=== PATIENT | male | born 1990 | race Hispanic/Latino ===

== ENCOUNTER 2016-10-02 14:49 | Inpatient (IN) | payer OTHER ==
--- NOTE | 2016-10-02 16:15 | ED PDOC ---
Arrival/HPI - General Historian: Patient - General Chief Complaint: Abdominal Pain Time Seen by Provider: 10/02/16 15:21 - History of Present Illness Narrative History of Present Illness (Text): 10/02/16 16:16 Patient complains of 1 week h/o intermittent upper abdominal pain described as a bloating sensation, worse with movement and with standing. Denies any other symptoms. Otherwise: (+) recent travel in end of August from [place] to [place], (-) nausea / vomiting, (-) diarrhea, (-) fever, (-) cough, (-) chest pain, (-) SOB, (-) urinary symptoms, (-) melena, (-) hematochezia, (-) calf pain / swelling. Has no history of prior abdominal surgery. (Mateo TORRES,Carly Harley) Past Medical History - Provider Review Nursing Documentation Reviewed: Yes - Infectious Disease Hx of Infectious Diseases: None - Reproductive Currently : No - Cardiac Hx Hypertension: Yes (tx with short time on meds) - Psychiatric Hx Substance Use: No Family/Social History - Physician Review Nursing Documentation Reviewed: Yes Family/Social History: No Known Family HX, Other (mother has a h/o clotting disorder, however pt states that he was tested and he was negative) Smoking Status: Never Smoked Hx Alcohol Use: Yes Frequency of alcohol use: Socially Hx Substance Use: No Allergies/Home Meds Allergies/Adverse Reactions: Allergies Sulfa (Sulfonamide Antibiotics) Adverse Reaction (Verified 10/02/16 15:20) RASH Home Medications: Home Meds Medication Instructions Recorded Confirmed No Known Home Med 10/02/16 10/02/16 Review of Systems - Review of Systems Constitutional: Normal. absent: Fatigue, Weight Change, Fevers Respiratory: Normal. absent: SOB, Cough, Sputum Cardiovascular: Normal. absent: Chest Pain, Palpitations, Edema Gastrointestinal: Normal, Abdominal Pain. absent: Stool Changes, Appetite Changes Musculoskeletal: Normal. absent: Arthralgias, Back Pain, Neck Pain Skin: Normal. absent: Rash, Pruritis, Skin Lesions Psychiatric: Normal, Anxiety. absent: Depression, Suicidal Ideation Physical Exam - Physical Exam Narrative Physical Exam (Text): 10/02/16 16:14 GENERAL APPEARANCE: Patient is awake, alert, oriented x 3, in no acute distress. SKIN: Warm, dry; (-) cyanosis. EYES: (-) conjunctival pallor, (-) scleral icterus. ENMT: Mucous membranes moist. NECK: (-) tenderness, (-) stiffness, (-) lymphadenopathy. CHEST AND RESPIRATORY: (-) tenderness, (-) rales, (-) rhonchi, (-) wheezes; breath sounds equal bilaterally. HEART AND CARDIOVASCULAR: (-) irregularity; (-) murmur, (-) gallop. ABDOMEN AND GI: (-) distention. Bowel sounds active; (-) tenderness, (-) guarding, (-) rebound, (-) palpable masses, (-) CVA tenderness. EXTREMITIES: (-) deformity, (-) edema, (+) distal pulses. NEURO AND PSYCH: Mental status as above; (-) focal findings. (Mateo TORRES, Carly Harley) Vital Signs Temp Pulse Resp BP Pulse Ox 10/02/16 20:47 98.5 F 108 H 18 160/95 H 98 10/02/16 18:49 110 H 18 155/103 H 97 10/02/16 16:49 112 H 18 157/106 H 97 10/02/16 14:49 99.7 F H 119 H 18 161/127 H 99 Medical Decision Making ED Course and Treatment: 10/02/16 16:12 26 yo M otherwise healthy presents for 1 week h.o pain in the upper abdomen by his diaphragm. Based on history and exam to r/o PE, consider non ST [place], dyspepsia. Plan: -- Labs -- IV fluids -- Urinalysis -- EKG -- CXR -- Reassess and disposition EKG: sinus tach at 118 bpm, LAD, (-) acute ST changes, as read by DARYN. CXR : CM, otherwise NAD, as read by DARYN 10/02/16 16:48 On reevaluation, patient is sitting comfortably in bed in no acute distress. Patient reports no chest pain, shortness of breath or abdominal pain at this time. Lab results reviewed, ALT mildly elevated, troponin is 0.07, d-dimer is elevated, hence CTA of the chest to rule out PE was ordered. The patient notified of lab results and plan to obtain CT. CTA chest results reviewed and are negative. US abd ordered. Patient sent to US. 10/02/16 19:00 US results reviewed, shows + GB wall thickening with no stones and no sludge. Considering history and diagnostic results. Call placed to house MD, arrangements made for inpatient admission, case was d/w with Dr. Rajat Cid. Further plan of care d/w the patient and agrees with inpt admission. (Mateo TORRES,Carly Harley) - Lab Interpretations Lab Results: 10/03/16 06:30 10/03/16 06:30 Lab Results 10/03/16 07:00: Hepatitis A IgM Ab Negative, Hep Bs Antigen Negative, Hep B Core IgM Ab Negative, Hepatitis C Antibody Negative 10/03/16 06:30: Plasma Metanephrine TNP, Plasma Normetanephrine TNP, Plas Total Metaneph TNP 10/03/16 06:30: Sodium 142, Potassium 4.4, Chloride 106, Carbon Dioxide 26, Anion Gap 14, BUN 22 H, Creatinine 1.2, Est GFR ( Amer) > 60, Est GFR ( Non-Af Amer) > 60, Random Glucose 81, Calcium 9.3, Total Bilirubin 1.4 H, AST 41 , ALT 91 H, Alkaline Phosphatase 59, Troponin I 0.05, Total Protein 6.0, Albumin 3.7, Globulin 2.3, Albumin/Globulin Ratio 1.6 10/03/16 06:30: WBC 8.4, RBC 4.92, Hgb 14.5, Hct 43.3, MCV 88.0, MCH 29.5, MCHC 33.5, RDW 13.0, Plt Count 214, MPV 12.1 H, Gran % 57.1, Lymph % (Auto) 29.5, [place] % (Auto) 11.1 H, Eos % (Auto) 1.8, Baso % (Auto) 0.5, Gran # 4.81, Lymph # 2.5, [place] # 0.9 H, Eos # 0.2, Baso # 0.04 10/02/16 22:15: TSH 3rd Generation 1.56 10/02/16 22:15: Troponin I 0.06, NT-Pro-B Natriuret Pep 3660 H 10/02/16 22:15: Ethanolamine None detected, Toxicology Panel Pending, Methyl Alcohol Level None detected, Isopropanol None detected, Acetone Level None detected 10/02/16 17:25: Urine Color Yellow, Urine Appearance Clear, Urine pH 6.0, Ur Specific [place] >= 1.030, Urine Protein 100 H, Urine Glucose (UA) Negative, Urine Ketones Negative, Urine Blood Trace-intact H, Urine Nitrate Negative, Urine Bilirubin Negative, Urine Urobilinogen 0.2, Ur Leukocyte Esterase Negative , Urine RBC 0 - 2, Urine WBC 0 - 2, Ur Epithelial Cells None, Urine Bacteria Small, Hyaline Casts 0 - 2 10/02/16 15:40: Sodium 141, Potassium 4.0, Chloride 107, Carbon Dioxide 24, Anion Gap 14, BUN 22 H, Creatinine 1.1, Est GFR ( Amer) > 60, Est GFR ( Non-Af Amer) > 60, Random Glucose 81, Calcium 9.6, Magnesium 2.1, Total Bilirubin 0.9, AST 48, ALT 105 H, Alkaline Phosphatase 57, Lactate Dehydrogenase 664, Total Creatine Kinase 118, Troponin I 0.07, Total Protein 6.2 , Albumin 3.9, Globulin 2.3, Albumin/Globulin Ratio 1.7, Lipase 80 10/02/16 15:40: PT 12.6 H, INR 1.17 H, APTT 26.4, D-Dimer, Quantitative 1.14 H 10/02/16 15:40: WBC 7.6, RBC 5.05, Hgb 15.1, Hct 44.0, MCV 87.1, MCH 29.9, MCHC 34.3, RDW 12.8, Plt Count 220, MPV 11.9 H, Gran % 62.5, Lymph % (Auto) 26.1, [place] % (Auto) 9.6 H, Eos % (Auto) 1.3 L, Baso % (Auto) 0.5, Gran # 4.75, Lymph # 2.0, [place] # 0.7 H, Eos # 0.1, Baso # 0.04 - RAD Interpretation Narrative RAD Interpretations (Text): 10/02/16 17:55 CTA chest: FINDINGS: PULMONARY ARTERIES: Unremarkable. No pulmonary embolism. AORTA: No acute findings. No thoracic aortic aneurysm. LUNGS: Unremarkable. No nodule, mass or pulmonary consolidation. PLEURAL SPACES: Trace right pleural effusion. HEART: Cardiomegaly. No radiographic findings to suggest acute or significant cardiovascular disease. LYMPH NODES: No lymphadenopathy. BONES, CHEST WALL: Unremarkable. No fracture or destructive lesion OTHER FINDINGS: Unremarkable. IMPRESSION: Unremarkable CT pulmonary angiogram. No pulmonary embolus. Incidental finding(s): Trace right pleural effusion. 10/02/16 19:00 US abd: FINDINGS: LIVER: Measures 17.2 cm. Hepatopedal blood flow. Fatty infiltration manifest ultrasonographically as increased echogenicity of the liver parenchyma. No mass. No intrahepatic bile duct dilatation. GALLBLADDER: Gallbladder wall thickening. No evidence of cholelithiasis, sonographic Chaudhry' s sign, sludge or pericholecystic fluid. COMMON BILE DUCT: Measures 2.8 mm. No stones. No dilatation. PANCREAS: Unremarkable as visualized. No mass. No ductal dilatation. RIGHT KIDNEY: Measures 5512.9cm. Normal echogenicity. No calculus, mass, or hydronephrosis. LEFT KIDNEY: Measures 5.6 x 13.3cm. Normal echogenicity. No calculus, mass, or hydronephrosis.Incidental finding(s): Simple cyst lower pole 1.6 x 2.1 cm SPLEEN: Normal in size and contour. No mass. AORTA: No aneurysmal dilatation. IVC: Unremarkable. OTHER FINDINGS: None. IMPRESSION: No acute findings related to/accounting for the clinical presentation. Additional benign and/or incidental findings described above. (Mateo TORRES, Carly Harley) Radiology Orders: 10/02/16 15:29 CHEST TWO VIEWS (PA/LAT) [RAD] Stat 10/02/16 16:47 ANGIO CHEST PE PROTOCOL [CT] Stat 10/02/16 17:39 ABDOMEN COMPLETE [US] Stat - Medication Orders Current Medication Orders: Acetaminophen (Tylenol 325mg Tab) 650 mg PO Q4H PRN PRN Reason: Fever >100.4 F Aspirin (Ecotrin) 81 mg PO DAILY [facility] Last Admin: 10/07/16 10:21 Dose: 81 mg Carvedilol (Coreg) 3.125 mg PO BID [facility] Last Admin: 10/07/16 17:18 Dose: 3.125 mg Furosemide (Lasix) 20 mg IVP Q12 [facility] Last Admin: 10/07/16 22:33 Dose: 20 mg Lisinopril (Zestril) 10 mg PO DAILY [facility] Last Admin: 10/07/16 09:10 Dose: 10 mg Pantoprazole Sodium (Protonix Inj) 40 mg IVP 0600 [facility] Last Admin: 10/08/16 06:17 Dose: 40 mg Spironolactone (Aldactone) 25 mg PO DAILY [facility] Last Admin: 10/07/16 09:09 Dose: 25 mg Warfarin Sodium (Coumadin) 10 mg PO 1800 [facility] PRN Reason: Protocol Last Admin: 10/07/16 17:18 Dose: 10 mg Discontinued Medications Atropine Sulfate (Atropine) Confirm Administered Dose 1 mg .ROUTE .STK-MED ONE Stop: 10/05/16 10:19 Last Admin: 10/05/16 14:24 Dose: Carvedilol (Coreg) 12.5 mg PO STAT STA Stop: 10/02/16 20:24 Last Admin: 10/02/16 21:07 Dose: 12.5 mg Clonidine HCl (Catapres) 0.1 mg PO STAT STA Stop: 10/04/16 01:22 Last Admin: 10/04/16 01:31 Dose: 0.1 mg Fentanyl (Fentanyl) Confirm Administered Dose 100 mcg .ROUTE .STK-MED ONE Stop: 10/05/16 10:30 Last Admin: 10/05/16 11:13 Dose: 50 mcg Furosemide (Lasix) Confirm Administered Dose 20 mg .ROUTE .STK-MED ONE Stop: 10/03/16 16:25 Furosemide (Lasix) Confirm Administered Dose 20 mg .ROUTE .STK-MED ONE Stop: 10/03/16 16:59 Furosemide (Lasix) 20 mg IVP ONCE ONE Stop: 10/03/16 23:15 Last Admin: 10/03/16 23:34 Dose: 20 mg Ceftriaxone Sodium (Rocephin 1 Gram Ivpb) 1 gm in 100 mls @ 100 mls/hr IVPB DAILY [facility] PRN Reason: Protocol Last Admin: 10/04/16 10:54 Dose: 100 mls/hr Azithromycin (Zithromax 500mg In Ns) 500 mg in 250 mls @ 167 mls/hr IVPB DAILY [facility] PRN Reason: Protocol Last Admin: 10/04/16 10:55 Dose: 167 mls/hr Heparin Sodium (Porcine) (Heparin 1000 Units/500 Ml Ns) Confirm Administered Dose 1,500 mls @ ud IV .STK-MED ONE Stop: 10/05/16 10:18 Iohexol (Omnipaque 350 100 Ml) Confirm Administered Dose 350 mg .ROUTE .STK-MED ONE Stop: 10/02/16 17:14 Iohexol (Omnipaque 350 150 Ml) Confirm Administered Dose 150 ml .ROUTE .STK-MED ONE Stop: 10/05/16 10:21 Iohexol (Omnipaque 350mg/Ml 50 Ml) Confirm Administered Dose 50 ml .ROUTE .STK- MED ONE Stop: 10/05/16 10:21 Iohexol (Omnipaque 350 100 Ml) Confirm Administered Dose 350 mg .ROUTE .STK-MED ONE Stop: 10/05/16 10:21 Lidocaine HCl (Lidocaine 2% 20ml Vial) Confirm Administered Dose 20 ml .ROUTE .STK-MED ONE Stop: 10/05/16 10:18 Last Admin: 10/05/16 11:18 Dose: 10 ml Midazolam HCl (Versed Inj) Confirm Administered Dose 2 mg .ROUTE .STK-MED ONE Stop: 10/05/16 10:30 Last Admin: 10/05/16 11:13 Dose: 1 mg Warfarin Sodium (Coumadin) 5 mg PO 1800 [facility] PRN Reason: Protocol Last Admin: 10/05/16 18:00 Dose: 5 mg Warfarin Sodium (Coumadin) 7.5 mg PO 1800 [facility] PRN Reason: Protocol Last Admin: 10/06/16 17:45 Dose: 7.5 mg - PA / ASSISTANT ANALYST / Resident Statement /DO has reviewed & agrees with the documentation as recorded. Disposition/Present on Arrival - Present on Arrival Any Indicators Present on Arrival: No History of DVT/PE: No History of Uncontrolled Diabetes: No Urinary Catheter: No History of Decub. Ulcer: No History Surgical Site Infection Following: None - Disposition Have Diagnosis and Disposition been Completed?: Yes Disposition Time: 19:00 Patient Plan: Admission - Disposition Diagnosis: Abdominal pain, Elevated troponin, Thickening of wall of gallbladder Disposition: HOSPITALIZED Patient Problems: Current Active Problems Problem Status Onset Abdominal pain Acute Elevated troponin Acute Thickening of wall of gallbladder Acute Condition: STABLE
[2016-10-02 16:25] LABS: ALB/GLOB RATIO 1.7 (1.1-1.8); ALBUMIN 3.9 g/dL (3.0-4.8); ALT/SGPT 105 U/L (7-56); AST/SGOT 48 U/L (15-59); BLOOD UREA NITROGEN 22 mg/dL (7-21); CALCIUM 9.6 mg/dL (8.4-10.5); GFR AFRICAN-AMERICAN > 60; GFR NON-AFRICAN AMERICAN > 60; LIPASE 80 U/L (23-300); MAGNESIUM 2.1 mg/dL (1.7-2.2)
[2016-10-02 16:36] LABS: TROPONIN I 0.07 ng/mL
[2016-10-02 16:37] LABS: BASO # 0.04 K/mm3 (0.0-2.0); BASO % 0.5 % (0.0-3.0); EOS # 0.1 (0.0-0.7); EOS % 1.3 % (1.5-5.0); GRAN # 4.75 (1.4-6.5); GRAN % 62.5 % (50.0-68.0); HEMOGLOBIN 15.1 gm/dL (14.0-18.0); LYMPH % 26.1 % (22.0-35.0); MEAN CELL VOLUME 87.1 fL (80.0-105.0); MEAN CORPUSCULAR HEMOGLOBIN 29.9 pg (25.0-35.0); MEAN CORPUSCULAR HGB CONC 34.3 g/dl (31.0-37.0); MEAN PLATELET VOLUME 11.9 fl (7.0-11.0); MONO # 0.7 (0.1-0.6); MONO % 9.6 % (1.0-6.0); PLATELET COUNT 220 10^3/uL (120.0-450.0); RBC 5.05 10^6/uL (3.5-6.1); RED CELL DISTRIBUTION WIDTH 12.8 % (11.5-14.5); WHITE BLOOD COUNT 7.6 10^3/ul (4.5-11.0)
[2016-10-02 16:41] LABS: INR 1.17 (0.93-1.08); PARTIAL THROMBOPLASTIN TIME 26.4 Seconds (23.7-30.8); PROTHROMBIN TIME 12.6 Seconds (9.9-11.8)
[2016-10-02 16:45] LABS: D DIMER 1.14 mg/L FEU (0-0.50)
[2016-10-02] MEDS ORDERED: Iohexol 350 MG/100 ML VIAL ONE (17:13)
[2016-10-02 17:53] LABS: URINE BILIRUBIN NEGATIVE (NEGATIVE); URINE BLOOD TRACE-INTACT (NEGATIVE); URINE GLUCOSE (UA) NEGATIVE (NEGATIVE); URINE LEUKOCYTE ESTERASE NEGATIVE Leu/uL (NEGATIVE); URINE NITRATE NEGATIVE (NEGATIVE); URINE PROTEIN 100 mg/dL (<30 mg/dL); URINE UROBILINOGEN 0.2 E.U./dL (<1 E.U./dL)
--- NOTE | 2016-10-02 17:53 | CT ---
PROCEDURE: CT Chest with contrast (Pulmonary Angiogram) HISTORY: upper abd pain, r/o PE COMPARISON: None available. TECHNIQUE: Axial computed tomography images were obtained of the chest in the pulmonary arterial phase of enhancement. Coronal and sagittal reformatted images were created and reviewed. Intravenous contrast dose: 100 cc Omnipaque 350 Mean Hounsfield unit values in the main pulmonary artery: 317.05 Radiation dose: Total exam DLP = 803.41 mGy-cm. This CT exam was performed using one or more of the following dose reduction techniques: Automated exposure control, adjustment of the mA and/or kV according to patient size, and/or use of iterative reconstruction technique. FINDINGS: PULMONARY ARTERIES: Unremarkable. No pulmonary embolism. AORTA: No acute findings. No thoracic aortic aneurysm. LUNGS: Unremarkable. No nodule, mass or pulmonary consolidation. PLEURAL SPACES: Trace right pleural effusion. HEART: Cardiomegaly. No radiographic findings to suggest acute or significant cardiovascular disease. LYMPH NODES: No lymphadenopathy. BONES, CHEST WALL: Unremarkable. No fracture or destructive lesion OTHER FINDINGS: Unremarkable. IMPRESSION: Unremarkable CT pulmonary angiogram. No pulmonary embolus. Incidental finding(s): Trace right pleural effusion.
--- NOTE | 2016-10-02 17:58 | RAD ---
HISTORY: Pain COMPARISON: No prior. TECHNIQUE: Chest PA and lateral FINDINGS: LUNGS: No active pulmonary disease. PLEURA: No significant pleural effusion identified. No pneumothorax apparent. CARDIOVASCULAR: Normal. OSSEOUS STRUCTURES: No significant abnormalities. VISUALIZED UPPER ABDOMEN: Normal. OTHER FINDINGS: None. IMPRESSION: No active disease.
[2016-10-02 18:03] LABS: URINE APPEARANCE CLEAR (CLEAR); URINE COLOR YELLOW (YELLOW)
--- NOTE | 2016-10-02 18:22 | US ---
HISTORY: epigastric pain, r/o cholecystitis COMPARISON: None. TECHNIQUE: Sonographic evaluation of the abdomen. FINDINGS: LIVER: Measures 17.2 cm. Hepatopedal blood flow. Fatty infiltration manifest ultrasonographically as increased echogenicity of the liver parenchyma. No mass. No intrahepatic bile duct dilatation. GALLBLADDER: Gallbladder wall thickening. No evidence of cholelithiasis, sonographic Chaudhry's sign, sludge or pericholecystic fluid. COMMON BILE DUCT: Measures 2.8 mm. No stones. No dilatation. PANCREAS: Unremarkable as visualized. No mass. No ductal dilatation. RIGHT KIDNEY: Measures 5512.9cm. Normal echogenicity. No calculus, mass, or hydronephrosis. LEFT KIDNEY: Measures 5.6 x 13.3cm. Normal echogenicity. No calculus, mass, or hydronephrosis.Incidental finding(s): Simple cyst lower pole 1.6 x 2.1 cm SPLEEN: Normal in size and contour. No mass. AORTA: No aneurysmal dilatation. IVC: Unremarkable. OTHER FINDINGS: None. IMPRESSION: No acute findings related to/accounting for the clinical presentation. Additional benign and/or incidental findings described above.
[2016-10-02 18:30] LABS: URINE RBC 0 - 2 /hpf (0-2); URINE WBC 0 - 2 /hpf (0-6)
[2016-10-02 18:31] LABS: URINE BACTERIA SMALL (NEG); URINE HYALINE CAST 0 - 2 /hpf
--- NOTE | 2016-10-02 19:58 | CARD ---
APPROVED REPORT EKG Measurement Heart [id number] VT [id number] [id number] <Conclusion> Sinus tachycardia Left atrial enlargement Left axis deviation Nonspecific T wave abnormality Abnormal ECG
--- NOTE | 2016-10-02 20:31 | CP.PCM.HP ---
<Chandrakant Hummel - Last Filed: 10/03/16 04:29> History of Present Illness - History of Present Illness History of Present Illness: cc: abdominal pain HPI: Patient is a 26yo male with past medical history of hypertension that presents c/o abdominal pain. Patient reports that the pain localizes to the epigastric region and has been ongoing for the past week now. He states that the pain is intermittent and non-radiating however it exacerbates on movement and standing. He also reported shortness of breath when laying on his back and has recently been trying to sleep in a reclined position. Patient also noted that the abdominal pain is associated with bloating and a decreased appetite. He had tried to use pepto bismol, prilosec and ibuprofen without relief. States that the pain is now a 2/10 in severity however he decided to come in for evaluation because it has affected his ADL's. Denies any changes in bowel/ bladder habits, nausea, vomiting, fever, chills, constipation, diarrhea, melena , hematochezia, hematemesis, chest pain, palpitations. On arrival to the ED, his vitals were as follows: BP of 161/127, heart rate 119bpm, respiratory rate 18, O2sat 99% on room air. 12 point ROS as per HPI above, otherwise negative PMHx: hypertension PSHx: denies Allergies: Sulfa Family Hx: Mother: lupus, CAD, depression, Antiphospholipid ab syndrome; Father : diverticulitis Social Hx: Denies tobacco, alcohol and illicit drug use; Recently moved from [place] at the end of August; Works as a [employer] teacher Present on Admission - Present on Admission Any Indicators Present on Admission: No Past Patient History - Infectious Disease Hx of Infectious Diseases: None - Past Social History Smoking Status: Never Smoked - CARDIAC Hx Hypertension: Yes (tx with short time on meds) - PSYCHIATRIC Hx Substance Use: No Meds Allergies/Adverse Reactions: Allergies Allergy/AdvReac Type Severity Reaction Status Date / Time Sulfa (Sulfonamide AdvReac RASH Verified 10/02/16 15:20 Antibiotics) Physical Exam - Constitutional Appears: Well, Non-toxic, No Acute Distress - Head Exam Head Exam: ATRAUMATIC, NORMAL INSPECTION, NORMOCEPHALIC - Eye Exam Eye Exam: EOMI, PERRL - ENT Exam ENT Exam: Mucous Membranes Moist - Neck Exam Neck exam: Positive for: Normal Inspection. Negative for: Lymphadenopathy, Tenderness, Thyromegaly - Respiratory Exam Respiratory Exam: Clear to Auscultation Bilateral. absent: Rales, Rhonchi, Wheezes - Cardiovascular Exam Cardiovascular Exam: Tachycardia, +S1, +S2. absent: Diastolic murmur, Gallop, JVD, Rubs, Systolic Murmur - GI/Abdominal Exam GI & Abdominal Exam: Distended, Normal Bowel Sounds, Soft. absent: Firm, Guarding, Rebound, Tenderness Additional comments: no tenderness to palpation, normal bowel sounds, distended - Extremities Exam Extremities exam: Positive for: normal inspection, pedal pulses present. Negative for: calf tenderness, pedal edema, tenderness - Neurological Exam Neurological exam: Alert, CN II-XII Intact, Oriented x3 - Psychiatric Exam Psychiatric exam: Normal Affect, Normal Mood - Skin Skin Exam: Dry, Intact, Normal Color, Warm Results - Vital Signs Recent Vital Signs: Last Vital Signs Temp 99.7 F H 10/02/16 14:49 Pulse 119 H 10/02/16 14:49 Resp 18 10/02/16 14:49 BP 161/127 H 10/02/16 14:49 Pulse Ox 99 10/02/16 14:49 - Labs Result Diagrams: 10/02/16 15:40 10/02/16 15:40 Labs: Laboratory Results - last 24 hr 10/02/16 10/02/16 10/02/16 15:40 15:40 15:40 WBC 7.6 RBC 5.05 Hgb 15.1 Hct 44.0 MCV 87.1 MCH 29.9 MCHC 34.3 RDW 12.8 Plt Count 220 MPV 11.9 H Gran % 62.5 Lymph % (Auto) 26.1 [place] % (Auto) 9.6 H Eos % (Auto) 1.3 L Baso % (Auto) 0.5 Gran # 4.75 Lymph # 2.0 [place] # 0.7 H Eos # 0.1 Baso # 0.04 PT 12.6 H INR 1.17 H APTT 26.4 D-Dimer, Quantitative 1.14 H Sodium 141 Potassium 4.0 Chloride 107 Carbon Dioxide 24 Anion Gap 14 BUN 22 H Creatinine 1.1 Est GFR ( Amer) > 60 Est GFR (Non-Af Amer) > 60 Random Glucose 81 Calcium 9.6 Magnesium 2.1 Total Bilirubin 0.9 AST 48 ALT 105 H Alkaline Phosphatase 57 Lactate Dehydrogenase 664 Total Creatine Kinase 118 Troponin I 0.07 Total Protein 6.2 Albumin 3.9 Globulin 2.3 Albumin/Globulin Ratio 1.7 Lipase 80 Urine Color Urine Appearance Urine pH Ur Specific [place] Urine Protein Urine Glucose (UA) Urine Ketones Urine Blood Urine Nitrate Urine Bilirubin Urine Urobilinogen Ur Leukocyte Esterase Urine RBC Urine WBC Ur Epithelial Cells Urine Bacteria Hyaline Casts 10/02/16 17:25 WBC RBC Hgb Hct MCV MCH MCHC RDW Plt Count MPV Gran % Lymph % (Auto) [place] % (Auto) Eos % (Auto) Baso % (Auto) Gran # Lymph # [place] # Eos # Baso # PT INR APTT D-Dimer, Quantitative Sodium Potassium Chloride Carbon Dioxide Anion Gap BUN Creatinine Est GFR ( Amer) Est GFR (Non-Af Amer) Random Glucose Calcium Magnesium Total Bilirubin AST ALT Alkaline Phosphatase Lactate Dehydrogenase Total Creatine Kinase Troponin I Total Protein Albumin Globulin Albumin/Globulin Ratio Lipase Urine Color Yellow Urine Appearance Clear Urine pH 6.0 Ur Specific [place] >= 1.030 Urine Protein 100 H Urine Glucose (UA) Negative Urine Ketones Negative Urine Blood Trace-intact H Urine Nitrate Negative Urine Bilirubin Negative Urine Urobilinogen 0.2 Ur Leukocyte Esterase Negative Urine RBC 0 - 2 Urine WBC 0 - 2 Ur Epithelial Cells None Urine Bacteria Small Hyaline Casts 0 - 2 Assessment & Plan - Assessment and Plan (Free Text) Plan: 26yo male with history of hypertension presents c/o epigastric abdominal pain for the past week 1. Epigastric abdominal pain -Lipase within normal limits -Abd US revealed no acute findings however was noted to have gallbladder wall thickening with no evidence of cholelithiasis, sludge or pericholecystic fluid -CXR revealed no active disease -D-dimer elevated; CT Chest was ordered and was unremarkable with no pulmonary embolus however was noted to have trace right pleural effusion -BNP elevated at 3660 -TSH within normal limits -Troponin was indeterminate x2, pending final troponin -EKG revealed sinus tachycardia at 116bpm with LAD, left atrial enlargement and nonspecific T wave abnormality -Echocardiogram pending -Utox pending -Cardiology consulted - Dr. Murguia -GI consulted - Dr. Dixon 2. Hypertensive urgency -Secondary causes of hypertension should be considered in this young male especially in light of his elevated BNP and left atrial enlargement noted on EKG -Pending Renin/Aldosterone activity; Pending plasma metanephrines given his symptoms of headaches, tachycardia, hypertension and diaphoresis -Coreg 12.5mg stat tab given; Continue lisinopril 10mg PO daily 3. GI/DVT Prophylaxis -Protonix/SCD's Patient seen and case discussed with attending, Dr. Cid - Date & Time Date: 10/02/16 Time: 20:37 <Galo Cid - Last Filed: 10/08/16 19:03> Results - Vital Signs Recent Vital Signs: Last Vital Signs Temp 98.7 F 10/06/16 17:34 Pulse 89 10/06/16 17:45 Resp 20 10/06/16 17:34 BP 135/93 H 10/06/16 17:45 Pulse Ox 98 10/06/16 05:46 - Labs Result Diagrams: 10/08/16 06:20 10/08/16 06:20 Labs: Laboratory Results - last 24 hr 10/06/16 10/06/16 10/06/16 07:15 07:15 07:15 WBC 8.0 RBC 5.17 Hgb 15.3 Hct 45.5 MCV 88.0 MCH 29.6 MCHC 33.6 RDW 13.1 Plt Count 202 MPV 11.3 H PT 13.1 H INR 1.21 H Sodium 140 Potassium 4.2 Chloride 102 Carbon Dioxide 29 Anion Gap 13 BUN 20 Creatinine 1.3 Est GFR ( Amer) > 60 Est GFR (Non-Af Amer) > 60 Random Glucose 84 Calcium 9.2 Total Bilirubin 1.4 H AST 57 ALT 99 H Alkaline Phosphatase 65 Total Protein 6.5 Albumin 4.0 Globulin 2.5 Albumin/Globulin Ratio 1.6
[2016-10-02 22:52] LABS: TROPONIN I 0.06 ng/mL
[2016-10-03 01:19] VITALS: BMI 33.3
[2016-10-03 06:50] LABS: BASO # 0.04 K/mm3 (0.0-2.0); BASO % 0.5 % (0.0-3.0); EOS # 0.2 (0.0-0.7); EOS % 1.8 % (1.5-5.0); GRAN # 4.81 (1.4-6.5); GRAN % 57.1 % (50.0-68.0); HEMOGLOBIN 14.5 gm/dL (14.0-18.0); LYMPH # 2.5 (1.2-3.4); LYMPH % 29.5 % (22.0-35.0); MEAN CORPUSCULAR HEMOGLOBIN 29.5 pg (25.0-35.0); MEAN CORPUSCULAR HGB CONC 33.5 g/dl (31.0-37.0); MEAN PLATELET VOLUME 12.1 fl (7.0-11.0); MONO # 0.9 (0.1-0.6); MONO % 11.1 % (1.0-6.0); PLATELET COUNT 214 10^3/uL (120.0-450.0); RBC 4.92 10^6/uL (3.5-6.1); WHITE BLOOD COUNT 8.4 10^3/ul (4.5-11.0)
[2016-10-03 07:04] LABS: ALB/GLOB RATIO 1.6 (1.1-1.8); ALBUMIN 3.7 g/dL (3.0-4.8); ALT/SGPT 91 U/L (7-56); AST/SGOT 41 U/L (15-59); BLOOD UREA NITROGEN 22 mg/dL (7-21); CALCIUM 9.3 mg/dL (8.4-10.5); GFR AFRICAN-AMERICAN > 60; GFR NON-AFRICAN AMERICAN > 60
[2016-10-03 07:09] LABS: TROPONIN I 0.05 ng/mL
--- NOTE | 2016-10-03 08:15 | CP.PCM.CON ---
History of Present Illness - History of Present Illness History of Present Illness: GI consult for Dr. Dixon cc: Epigastric abdominal pain HPI: Patient is a 26yo male with past medical history of hypertension that presents c/o epigastric abdominal pain. Patient reports that the pain localizes to the epigastric region and has been ongoing for the past week now. He states that the pain is intermittent and non-radiating however it exacerbates on movement and standing. He also reported shortness of breath. Patient also noted that the abdominal pain is associated with bloating and a decreased appetite. He had tried to use pepto bismol, prilosec and ibuprofen without relief. Pt recently moved from [place] to [place]. Reports taking Ibuprofen for pain weekly. No change in diet. Denies any changes in bowel/bladder habits, nausea, vomiting, fever, chills, constipation, diarrhea, melena, hematochezia, hematemesis. On arrival to the ED, his vitals were as follows: BP of 161/127, heart rate 119bpm , respiratory rate 18, O2sat 99% on room air. BNP was elevated to 3300. US shows thicken gallbladder wall but no stones. Lipase was wnl. 12 point ROS as per HPI above, otherwise negative PMHx: hypertension PSHx: denies Allergies: Sulfa Family Hx: Mother: lupus, CAD, depression, Antiphospholipid ab syndrome; Father : diverticulitis Social Hx: Denies tobacco, alcohol and illicit drug use; Recently moved from [place] at the end of August; Works as a [id number] teacher Review of Systems - Review of Systems Review of Systems: See HPI Past Patient History - Infectious Disease Hx of Infectious Diseases: None - Past Social History Smoking Status: Never Smoked - CARDIAC Hx Hypertension: Yes (tx with short time on meds) - MUSCULOSKELETAL/RHEUMATOLOGICAL Hx Falls: No - PSYCHIATRIC Hx Substance Use: No Meds Allergies/Adverse Reactions: Allergies Allergy/AdvReac Type Severity Reaction Status Date / Time Sulfa (Sulfonamide AdvReac RASH Verified 10/02/16 15:20 Antibiotics) - Medications Medications: Current Medications Acetaminophen (Tylenol 325mg Tab) 650 mg PO Q4H PRN PRN Reason: Fever >100.4 F Lisinopril (Zestril) 10 mg PO DAILY [facility] Pantoprazole Sodium (Protonix Inj) 40 mg IVP 0600 [facility] Physical Exam - Constitutional Appears: Non-toxic, No Acute Distress - Head Exam Head Exam: ATRAUMATIC, NORMAL INSPECTION, NORMOCEPHALIC - Eye Exam Eye Exam: EOMI, Normal appearance, PERRL Pupil Exam: NORMAL ACCOMODATION, PERRL - ENT Exam ENT Exam: Mucous Membranes Moist, Normal Exam - Neck Exam Neck exam: Positive for: Normal Inspection - Respiratory Exam Respiratory Exam: Clear to Auscultation Bilateral, NORMAL BREATHING PATTERN - Cardiovascular Exam Cardiovascular Exam: REGULAR RHYTHM - GI/Abdominal Exam GI & Abdominal Exam: Normal Bowel Sounds, Soft, Tenderness Additional comments: Obese. MIld epigastric tenderness: non reproducible - Extremities Exam Extremities exam: Positive for: full ROM, normal inspection - Back Exam Back exam: NORMAL INSPECTION - Neurological Exam Neurological exam: Alert, CN II-XII Intact, Normal Gait, Oriented x3, Reflexes Normal - Psychiatric Exam Psychiatric exam: Normal Affect, Normal Mood - Skin Skin Exam: Dry, Intact, Normal Color, Warm Results - Vital Signs Recent Vital Signs: Last Vital Signs Temp 98.5 F 10/03/16 06:00 Pulse 86 10/03/16 06:00 Resp 20 10/03/16 06:00 BP 145/99 H 10/03/16 06:00 Pulse Ox 96 10/03/16 06:00 - Labs Result Diagrams: 10/03/16 06:30 10/03/16 06:30 Labs: Laboratory Results - last 24 hr 10/02/16 10/02/16 10/03/16 22:15 22:15 06:30 WBC 8.4 RBC 4.92 Hgb 14.5 Hct 43.3 MCV 88.0 MCH 29.5 MCHC 33.5 RDW 13.0 Plt Count 214 MPV 12.1 H Gran % 57.1 Lymph % (Auto) 29.5 Pacific % (Auto) 11.1 H Eos % (Auto) 1.8 Baso % (Auto) 0.5 Gran # 4.81 Lymph # 2.5 Pacific # 0.9 H Eos # 0.2 Baso # 0.04 Sodium Potassium Chloride Carbon Dioxide Anion Gap BUN Creatinine Est GFR ( Amer) Est GFR (Non-Af Amer) Random Glucose Calcium Total Bilirubin AST ALT Alkaline Phosphatase Troponin I 0.06 NT-Pro-B Natriuret Pep 3660 H Total Protein Albumin Globulin Albumin/Globulin Ratio TSH 3rd Generation 1.56 10/03/16 06:30 WBC RBC Hgb Hct MCV MCH MCHC RDW Plt Count MPV Gran % Lymph % (Auto) Pacific % (Auto) Eos % (Auto) Baso % (Auto) Gran # Lymph # Pacific # Eos # Baso # Sodium 142 Potassium 4.4 Chloride 106 Carbon Dioxide 26 Anion Gap 14 BUN 22 H Creatinine 1.2 Est GFR ( Amer) > 60 Est GFR (Non-Af Amer) > 60 Random Glucose 81 Calcium 9.3 Total Bilirubin 1.4 H AST 41 ALT 91 H Alkaline Phosphatase 59 Troponin I 0.05 NT-Pro-B Natriuret Pep Total Protein 6.0 Albumin 3.7 Globulin 2.3 Albumin/Globulin Ratio 1.6 TSH 3rd Generation Assessment & Plan - Assessment and Plan (Free Text) Assessment: 26 M w pmh of HTN and obesity came with epigastric abd pain and SOB: improved BNP was elevated to 3300. US shows thicken gallbladder wall but no stones. Lipase was wnl. EKG: Sinus tach Cardio following Protonix Avoid NSAIDs Recommend weight loss Pain control PAULIE Dixon
--- NOTE | 2016-10-03 11:21 | CP.PCM.PN ---
<Donn Lockwood - Last Filed: 10/06/16 11:45> Subjective - Date & Time of Evaluation Date of Evaluation: 10/03/16 Time of Evaluation: 07:40 - Subjective Subjective: Medicine progress note: Pt seen and examined at bedside. No acute events overnight. States that his abdominal pain is much improved. Denies any tran, dizziness, f/c, sob, cp, abd pain, n/v/d. Objective - Vital Signs/Intake and Output Vital Signs (last 24 hours): Temp Pulse Resp BP Pulse Ox 98.5 F 96 H 20 145/99 H 96 10/03/16 06:00 10/03/16 09:37 10/03/16 06:00 10/03/16 09:37 10/03/16 06:00 Intake and Output: 10/03/16 10/03/16 06:59 18:59 Intake Total 420 Output Total 2 Balance 418 - Medications Medications: Current Medications Acetaminophen (Tylenol 325mg Tab) 650 mg PO Q4H PRN PRN Reason: Fever >100.4 F Lisinopril (Zestril) 10 mg PO DAILY [facility] Last Admin: 10/03/16 09:37 Dose: 10 mg Pantoprazole Sodium (Protonix Inj) 40 mg IVP 0600 [facility] Last Admin: 10/03/16 09:37 Dose: 40 mg - Labs Labs: 10/03/16 06:30 10/03/16 06:30 PT 12.6 Seconds (9.9-11.8) H 10/02/16 15:40 INR 1.17 (0.93-1.08) H 10/02/16 15:40 APTT 26.4 Seconds (23.7-30.8) 10/02/16 15:40 - Constitutional Appears: No Acute Distress - Head Exam Head Exam: ATRAUMATIC, NORMAL INSPECTION, NORMOCEPHALIC - Eye Exam Eye Exam: EOMI, Normal appearance, PERRL - ENT Exam ENT Exam: Mucous Membranes Moist, Normal Exam - Neck Exam Neck Exam: Full ROM, Normal Inspection. absent: Lymphadenopathy - Respiratory Exam Respiratory Exam: Clear to Ausculation Bilateral, NORMAL BREATHING PATTERN. absent: Wheezes - Cardiovascular Exam Cardiovascular Exam: REGULAR RHYTHM, RRR, +S1, +S2. absent: Murmur - GI/Abdominal Exam GI & Abdominal Exam: Soft, Normal Bowel Sounds. absent: Distended, Tenderness - Extremities Exam Extremities Exam: Full ROM, Normal Capillary Refill, Normal Inspection. absent : Joint Swelling, Pedal Edema - Back Exam Back Exam: NORMAL INSPECTION - Neurological Exam Neurological Exam: Alert, Awake, CN II-XII Intact, Normal Gait, Oriented x3 - Psychiatric Exam Psychiatric exam: Normal Affect, Normal Mood - Skin Skin Exam: Dry, Intact, Normal Color, Warm Assessment and Plan - Assessment and Plan (Free Text) Assessment: 26yo male with history of hypertension presents c/o epigastric abdominal pain for the past week found to have hypertensive urgency. 1. Epigastric abdominal pain -Lipase within normal limits -Abd US revealed no acute findings however was noted to have gallbladder wall thickening with no evidence of cholelithiasis, sludge or pericholecystic fluid -D-dimer elevated; CT Chest was ordered and was unremarkable with no pulmonary embolus however was noted to have trace right pleural effusion -Utox pending -GI consulted - Dr. Dixon 2. Hypertensive urgency -CXR revealed no active disease -Troponin was indeterminate x3 -EKG revealed sinus tachycardia at 116bpm with LAD, left atrial enlargement and nonspecific T wave abnormality -BNP elevated at 3660 -f/u Echo -f/u Renin/Aldosterone activity and plasma metanephrines -Coreg 12.5mg stat tab given in ED -Continue lisinopril 10mg PO daily -TSH within normal limits -Cardiology consulted - Dr. Murguia 3. GI/DVT Prophylaxis -Protonix/SCD's Patient seen and case discussed with attending, Malachi <Malachi SANCHEZ,Gricelda - Last Filed: 10/17/16 11:15> Objective - Vital Signs/Intake and Output Vital Signs (last 24 hours): Temp Pulse Resp BP Pulse Ox 97 F L 73 20 121/73 100 10/08/16 06:00 10/08/16 10:15 10/08/16 06:00 10/08/16 10:15 10/08/16 08:00 - Labs Labs: 10/08/16 06:20 10/08/16 06:20 PT 14.5 Seconds (9.9-11.8) H 10/08/16 06:20 INR 1.34 (0.93-1.08) H 10/08/16 06:20 APTT 26.4 Seconds (23.7-30.8) 10/02/16 15:40 Attending/Attestation - Attestation I have personally seen and examined this patient.: Yes I have fully participated in the care of the patient.: Yes I have reviewed all pertinent clinical information, including history, physical exam and plan: Yes Notes (Text): 10/17/16 11:07 Patient was seen and examined with electromedical service engineer .Agreed with resident assessment and plan. 26 Yrs old male with PMH of HTN , obesity, non compliance with medication, was admitted with hypertensive urgency, elevated BNP and non specific abdominal pain. Abdominal pain is resolved. Patient Echo showed EF 20%, moderate MR and Pulmonary HTN,, will likely need cardiac catherization for evaluation of low EF. Management plan was discussed in detail with patient Education was provided.
[2016-10-03] MEDS ORDERED: cefTRIAXone 1 gm 1 GM/100 ML BAG IVPB SCH (14:00)
[2016-10-03] MEDS ORDERED: Azithromycin 500MG/NS 250ml 500 MG/250 ML BAG IVPB SCH (14:00)
--- NOTE | 2016-10-04 07:58 | CARD ---
APPROVED REPORT EXAM: Two-dimensional and M-mode echocardiogram with Doppler and color Doppler. INDICATION LA ENLARGEMENT/ORTHOPNEA 2D DIMENSIONS RVDd3.0 (2.9-3.5cm)Left Atrium (2D)5.6 (1.6-4.0cm) IVSd1.3 (0.7-1.1cm)LVDd6.2 (3.9-5.9cm) PWd1.5 (0.7-1.1cm)LVDs5.6 (2.5-4.0cm) FS (%) 9.4 %LVEF (%)20.3 (>50%) M-Mode DIMENSIONS Aortic Root3.40 (2.2-3.7cm)Aortic Cusp Exc.2.10 (1.5-2.0cm) Aortic Valve AoV Peak Jdxtpges33.5cm/Lesley Peak GR.3mmHg Mitral Valve MV E Ppmzttkj31.2cm/sMV A Iulflzhz76.7cm/sE/A ratio2.3 TDI Lateral E' Peak V8.97cm/sMedial E' Peak V5.17cm/sE/Lateral E'10.4 E/Medial E'18.0 Pulmonary Valve PV Peak Dekselpg56.0cm/sPV Peak Grad.1mmHg Tricuspid Valve TR Peak Vyoysqby863yx/sRAP [id number] Peak Gr.46mmHg [id number] LEFT VENTRICLE The Left Ventricle is borderline dilated. There is mild concentric left ventricular hypertrophy. The systolic function is severely impaired.EF-15-20% There is normal LV segmental wall motion. The left ventricular diastolic function is normal. No left ventricle thrombus noted on this study. There is no ventricular septal defect visualized. There is no left ventricular aneurysm. There is no mass noted in the left ventricle. RIGHT VENTRICLE The right ventricle is mildly to moderately dilated. There is normal right ventricular wall thickness. Systolic function is mildly to moderately reduced. ATRIA The left atrium is mildly dilated. The right atrium is mildly dilated. The interatrial septum is intact with no evidence for an atrial septal defect. AORTIC VALVE The aortic valve is thickened but opens well. There is mild aortic regurgitation. There is no aortic valvular stenosis. There is no aortic valvular vegetation. MITRAL VALVE The mitral valve is thickened but opens well. Mitral regurgitation is moderate. There is no mitral valve stenosis. There is no evidence of mitral valve prolapse. TRICUSPID VALVE The tricuspid valve leaflets are thickened , but open well. There is mild to moderate tricuspid regurgitation.[id number] mmof hg. There is mild to moderate pulmonary hypertension. There is no tricuspid valve stenosis. There is no tricuspid valve prolapse or vegetation. PULMONIC VALVE The pulmonary valve is normal in structure. There is trace pulmonic valvular regurgitation. There is no pulmonic valvular stenosis. GREAT VESSELS The aortic root is normal in size. The ascending aorta is normal in size. The pulmonary artery is normal. The IVC is normal in size and collapses >50% with inspiration. PERICARDIAL EFFUSION There is no pleural effusion. There is no pericardial effusion. <Conclusion> four chamber dilatationC/W CMP, EF-15-20%. Moderate MR Mild to moderate [id number] No vegetation or thrombus noted. There is mild aortic regurgitation. No vegetation or thrombus noted. There is mild to moderate pulmonary hypertension.
--- NOTE | 2016-10-04 11:01 | CP.PCM.PN ---
<Tico Bartlett - Last Filed: 10/04/16 11:01> Subjective - Date & Time of Evaluation Date of Evaluation: 10/04/16 Time of Evaluation: 11:00 - Subjective Subjective: Medicine progress note. Attending: Dr. Ly Pt seen and examined at bedside. Says he is feeling better. No fevers, chills, vomiting, diarrhea. Cardio work up and echo pending. Objective - Vital Signs/Intake and Output Vital Signs (last 24 hours): Temp Pulse Resp BP Pulse Ox 98.5 F 78 20 129/92 H 96 10/03/16 06:00 10/04/16 05:39 10/03/16 06:00 10/04/16 02:56 10/03/16 06:00 Intake and Output: 10/04/16 10/04/16 06:59 18:59 Intake Total 600 Output Total 2350 Balance -1750 - Medications Medications: Current Medications Acetaminophen (Tylenol 325mg Tab) 650 mg PO Q4H PRN PRN Reason: Fever >100.4 F Furosemide (Lasix) 20 mg IVP Q12 [facility] Ceftriaxone Sodium (Rocephin 1 Gram Ivpb) 1 gm in 100 mls @ 100 mls/hr IVPB DAILY [facility] PRN Reason: Protocol Azithromycin (Zithromax 500mg In Ns) 500 mg in 250 mls @ 167 mls/hr IVPB DAILY [facility] PRN Reason: Protocol Lisinopril (Zestril) 10 mg PO DAILY [facility] Last Admin: 10/03/16 09:37 Dose: 10 mg Pantoprazole Sodium (Protonix Inj) 40 mg IVP 0600 [facility] Last Admin: 10/04/16 05:59 Dose: 40 mg - Labs Labs: 10/03/16 06:30 10/03/16 06:30 PT 12.6 Seconds (9.9-11.8) H 10/02/16 15:40 INR 1.17 (0.93-1.08) H 10/02/16 15:40 APTT 26.4 Seconds (23.7-30.8) 10/02/16 15:40 - Constitutional Appears: Non-toxic, No Acute Distress - Head Exam Head Exam: ATRAUMATIC, NORMAL INSPECTION, NORMOCEPHALIC - Eye Exam Eye Exam: EOMI - ENT Exam ENT Exam: Mucous Membranes Moist - Respiratory Exam Respiratory Exam: NORMAL BREATHING PATTERN. absent: Respiratory Distress - Cardiovascular Exam Cardiovascular Exam: +S1, +S2 - GI/Abdominal Exam GI & Abdominal Exam: Soft, Normal Bowel Sounds. absent: Tenderness - Extremities Exam Extremities Exam: Full ROM, Normal Inspection - Back Exam Back Exam: NORMAL INSPECTION - Neurological Exam Neurological Exam: Alert, Awake, Oriented x3 - Psychiatric Exam Psychiatric exam: Normal Affect, Normal Mood - Skin Skin Exam: Dry, Intact, Normal Color, Warm Assessment and Plan - Assessment and Plan (Free Text) Assessment: This is a 26 yo male with history of hypertension presents c/o epigastric abdominal pain for the past week found to have hypertensive urgency. 1. Epigastric abdominal pain -Lipase within normal limits -Abd US revealed no acute findings however was noted to have gallbladder wall thickening with no evidence of cholelithiasis, sludge or pericholecystic fluid -D-dimer elevated; CT Chest was ordered and was unremarkable with no pulmonary embolus however was noted to have trace right pleural effusion -GI consulted - Dr. Dixon 2. Hypertensive urgency -CXR revealed no active disease -Troponin was indeterminate x3 -EKG revealed sinus tachycardia at 116bpm with LAD, left atrial enlargement and nonspecific T wave abnormality -BNP elevated at 3660 -f/u Echo -f/u Renin/Aldosterone activity and plasma metanephrines -Coreg 12.5mg stat tab given in ED -Continue lisinopril 10mg PO daily -TSH within normal limits -Cardiology consulted - Dr. Murguia -echo pending 3. GI/DVT Prophylaxis -Protonix/SCD's Patient seen and case discussed with attending, Malachi <Malachi SANCHEZ,Gricelda - Last Filed: 10/04/16 17:43> Objective - Vital Signs/Intake and Output Vital Signs (last 24 hours): Temp Pulse Resp BP Pulse Ox 97.7 F 75 20 119/84 96 10/04/16 17:31 10/04/16 17:31 10/04/16 17:31 10/04/16 17:31 10/03/16 06:00 - Medications Medications: Current Medications Acetaminophen (Tylenol 325mg Tab) 650 mg PO Q4H PRN PRN Reason: Fever >100.4 F Aspirin (Ecotrin) 81 mg PO DAILY [facility] Last Admin: 10/04/16 14:46 Dose: 81 mg Carvedilol (Coreg) 3.125 mg PO BID [facility] Furosemide (Lasix) 20 mg IVP Q12 [facility] Last Admin: 10/04/16 10:54 Dose: 20 mg Lisinopril (Zestril) 10 mg PO DAILY [facility] Last Admin: 10/04/16 10:55 Dose: 10 mg Pantoprazole Sodium (Protonix Inj) 40 mg IVP 0600 [facility] Last Admin: 10/04/16 05:59 Dose: 40 mg - Labs Labs: 10/04/16 11:30 PT 12.6 Seconds (9.9-11.8) H 10/02/16 15:40 INR 1.17 (0.93-1.08) H 10/02/16 15:40 APTT 26.4 Seconds (23.7-30.8) 10/02/16 15:40 Attending/Attestation - Attestation I have personally seen and examined this patient.: Yes I have fully participated in the care of the patient.: Yes I have reviewed all pertinent clinical information, including history, physical exam and plan: Yes Notes (Text): 10/04/16 17:40 Patient was seen and examined with medical dermatologist . 26 Yrs old was admitted with hypertensive urgency, elevated BNP and non specific abdominal pain.Abdominal pain is resolved. Patient Echo showed EF 20%, moderate MR and Pulmonary HTN, Etiology of cardiomyopathy is not clear, discuss with cardiology, plan for possible cath in am, will keep patient NPO after midnight. Blood pressure is better controlled. Management plan was discussed in detail with patient Education was provided.
[2016-10-04 12:04] LABS: BLOOD UREA NITROGEN 22 mg/dL (7-21); CALCIUM 9.4 mg/dL (8.4-10.5); GFR AFRICAN-AMERICAN > 60; GFR NON-AFRICAN AMERICAN > 60
[2016-10-05 07:04] LABS: BASO # 0.04 K/mm3 (0.0-2.0); BASO % 0.5 % (0.0-3.0); EOS # 0.2 (0.0-0.7); EOS % 2.3 % (1.5-5.0); GRAN # 5.33 (1.4-6.5); GRAN % 60.8 % (50.0-68.0); HEMOGLOBIN 14.6 gm/dL (14.0-18.0); LYMPH # 2.2 (1.2-3.4); LYMPH % 24.7 % (22.0-35.0); MEAN CELL VOLUME 87.9 fL (80.0-105.0); MEAN CORPUSCULAR HEMOGLOBIN 29.4 pg (25.0-35.0); MEAN CORPUSCULAR HGB CONC 33.5 g/dl (31.0-37.0); MEAN PLATELET VOLUME 11.4 fl (7.0-11.0); MONO % 11.7 % (1.0-6.0); PLATELET COUNT 204 10^3/uL (120.0-450.0); RBC 4.96 10^6/uL (3.5-6.1); RED CELL DISTRIBUTION WIDTH 12.9 % (11.5-14.5); WHITE BLOOD COUNT 8.8 10^3/ul (4.5-11.0)
[2016-10-05 07:28] LABS: ALB/GLOB RATIO 1.7 (1.1-1.8); ALBUMIN 3.9 g/dL (3.0-4.8); ALT/SGPT 82 U/L (7-56); AST/SGOT 41 U/L (15-59); BLOOD UREA NITROGEN 24 mg/dL (7-21); CALCIUM 9.1 mg/dL (8.4-10.5); GFR AFRICAN-AMERICAN > 60; GFR NON-AFRICAN AMERICAN > 60; MAGNESIUM 2.2 mg/dL (1.7-2.2)
[2016-10-05 08:01] LABS: HEPATITIS B SURFACE AG NEGATIVE (NEGATIVE)
[2016-10-05 08:06] LABS: HEPATITIS A IGM NEGATIVE (NEGATIVE)
[2016-10-05 08:09] LABS: HEPATITIS B CORE AB NEGATIVE (NEGATIVE)
[2016-10-05 08:18] LABS: HEPATITIS C ANTIBODY NEGATIVE (NEGATIVE)
[2016-10-05 09:24] LABS: B-TYPE NATRIURETIC PEPTIDE 732 pg/mL (0-450)
[2016-10-05] MEDS ORDERED: Lidocaine 2% Inj (20ml) ONE (10:17)
[2016-10-05] MEDS ORDERED: Iohexol 350 MG/100 ML VIAL ONE (10:20)
[2016-10-05] MEDS ORDERED: Iohexol 350mgl/ml 50 ML ONE (10:20)
[2016-10-05] MEDS ORDERED: Midazolam 2 MG/2 ML VIAL ONE (10:29)
--- NOTE | 2016-10-05 13:20 | CP.PCM.PN ---
<FILIPE MATA - Last Filed: 10/05/16 16:19> Subjective - Date & Time of Evaluation Date of Evaluation: 10/05/16 Time of Evaluation: 07:00 - Subjective Subjective: Mr. Kang was seen and examined bedside. Pt had no overnight complaints. Denies chest pain, palpitations, shortness of breath, or fevers. The patient was NPO since midnight and underwent catheterization today. After cath, @1530, pt mentioned that he would like to leave AMA Objective - Vital Signs/Intake and Output Vital Signs (last 24 hours): Temp Pulse Resp BP Pulse Ox 98.2 F 95 H 18 123/82 95 10/05/16 12:15 10/05/16 12:15 10/05/16 12:15 10/05/16 12:15 10/05/16 05:43 Intake and Output: 10/05/16 10/05/16 06:59 18:59 Intake Total 480 Output Total 1450 Balance -970 - Medications Medications: Current Medications Acetaminophen (Tylenol 325mg Tab) 650 mg PO Q4H PRN PRN Reason: Fever >100.4 F Aspirin (Ecotrin) 81 mg PO DAILY [facility] Last Admin: 10/05/16 10:15 Dose: 81 mg Carvedilol (Coreg) 3.125 mg PO BID [facility] Last Admin: 10/05/16 10:16 Dose: 3.125 mg Furosemide (Lasix) 20 mg IVP Q12 [facility] Last Admin: 10/05/16 10:00 Dose: Not Given Lisinopril (Zestril) 10 mg PO DAILY [facility] Last Admin: 10/05/16 10:16 Dose: 10 mg Pantoprazole Sodium (Protonix Inj) 40 mg IVP 0600 [facility] Last Admin: 10/05/16 06:06 Dose: 40 mg Warfarin Sodium (Coumadin) 5 mg PO 1800 [facility] PRN Reason: Protocol - Labs Labs: 10/05/16 06:20 10/05/16 06:20 PT 12.6 Seconds (9.9-11.8) H 10/02/16 15:40 INR 1.17 (0.93-1.08) H 10/02/16 15:40 APTT 26.4 Seconds (23.7-30.8) 10/02/16 15:40 - Constitutional Appears: Well, No Acute Distress - Head Exam Head Exam: ATRAUMATIC, NORMOCEPHALIC - Eye Exam Eye Exam: EOMI, Normal appearance, PERRL - ENT Exam ENT Exam: Mucous Membranes Moist - Respiratory Exam Respiratory Exam: Clear to Ausculation Bilateral, NORMAL BREATHING PATTERN. absent: Rales, Rhonchi, Wheezes - Cardiovascular Exam Cardiovascular Exam: REGULAR RHYTHM, RRR. absent: Gallop, Rubs - GI/Abdominal Exam GI & Abdominal Exam: Soft, Normal Bowel Sounds - Neurological Exam Neurological Exam: Alert, Awake, Oriented x3 - Psychiatric Exam Psychiatric exam: Normal Affect, Normal Mood - Skin Skin Exam: Normal Color, Warm Assessment and Plan - Assessment and Plan (Free Text) Assessment: 26yo M PMHx of HTN presented with epigastric pain, and Echo shows EF 15-20% and 4 chamber dilation: 1. Cardiomyopathy 2. Hypertensive urgency 3. Epigastric abdominal pain 4. GI/DVT Prophylaxis Plan: 1. Cardiomyopathy -Cath done (10/05/16): normal coronaries -EP consult (Dr. Atkinson) for low EF -start Coumadin 5mg, monitor INR in AM -Echo (10/03/16): 4 chamber dilation, EF 15-20%, mild to moderate pulm hypertension -BNP trending down (732 <- 3660) -Cardiology consult appreciated (Dr. Murguia) 2. Hypertensive urgency resolved and BP stabilized -f/u Renin/Aldosterone activity and plasma metanephrines -Continue lisinopril 10mg PO daily 3. Epigastric abdominal pain -GI consulted (Dr. Dixon) and recommended Protonix, avoiding NSAIDs and weight loss 4. GI/DVT Prophylaxis -Protonix/SCD's If patient leaves AMA, continue hospital doses of Lasix, Coreg, Lisonipril for 1 month, and Coumadin for 3 days then f/u in [place]R clinic at [facility] Patient seen and case discussed with attending, Dr. Ly <Malachi SANCHEZ,Gricelda - Last Filed: 10/05/16 16:33> Objective - Vital Signs/Intake and Output Vital Signs (last 24 hours): Temp Pulse Resp BP Pulse Ox 98.2 F 82 18 130/73 95 10/05/16 13:45 10/05/16 13:45 10/05/16 13:45 10/05/16 13:45 10/05/16 05:43 Intake and Output: 10/05/16 10/05/16 06:59 18:59 Intake Total 480 Output Total 1450 Balance -970 - Medications Medications: Current Medications Acetaminophen (Tylenol 325mg Tab) 650 mg PO Q4H PRN PRN Reason: Fever >100.4 F Aspirin (Ecotrin) 81 mg PO DAILY [facility] Last Admin: 10/05/16 10:15 Dose: 81 mg Carvedilol (Coreg) 3.125 mg PO BID [facility] Last Admin: 10/05/16 10:16 Dose: 3.125 mg Furosemide (Lasix) 20 mg IVP Q12 [facility] Last Admin: 10/05/16 10:00 Dose: Not Given Lisinopril (Zestril) 10 mg PO DAILY [facility] Last Admin: 10/05/16 10:16 Dose: 10 mg Pantoprazole Sodium (Protonix Inj) 40 mg IVP 0600 [facility] Last Admin: 10/05/16 06:06 Dose: 40 mg Warfarin Sodium (Coumadin) 5 mg PO 1800 [facility] PRN Reason: Protocol - Labs Labs: 10/05/16 06:20 10/05/16 06:20 PT 12.6 Seconds (9.9-11.8) H 10/02/16 15:40 INR 1.17 (0.93-1.08) H 10/02/16 15:40 APTT 26.4 Seconds (23.7-30.8) 10/02/16 15:40 Attending/Attestation - Attestation I have personally seen and examined this patient.: Yes I have fully participated in the care of the patient.: Yes I have reviewed all pertinent clinical information, including history, physical exam and plan: Yes Notes (Text): 10/05/16 16:30 Patient was seen and examined with spanish medical interpreter .Agreed with resident assessment and plan. 26 Yrs old male was admitted with hypertensive urgency, elevated BNP and non specific abdominal pain. Abdominal pain has resolved. Patient Echo showed EF 20 %, moderate MR and Pulmonary HTN,underwent cardiac cath today that showed non- obstructive coronaries, EP is consulted for Life vest..Patient has also been started on Warfarin on the recommendation of cardiology.He wants to be discharged.The issue and need of stay in the hospital was discussed in detail.Patient is alert, awake and oriented and understood the risk of leaving against medical advice. Management plan was discussed in detail with patient Education was provided.
--- NOTE | 2016-10-05 19:14 | CP.PCM.CON ---
History of Present Illness - History of Present Illness History of Present Illness: Mr. Kang with past medical history of Hypertension presents with worsening SOB , cough and abdominal distension. 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 He as been initiated on HF therapy and clinical condition has improved. He denies chest pain, palpitations, syncope or presyncope. He had L HC without findings of CAD. Review of Systems - Review of Systems Systems not reviewed;Unavailable: Acuity of Condition - Constitutional Constitutional: Fatigue - Cardiovascular Cardiovascular: Dyspnea - Respiratory Respiratory: Cough, Dyspnea - Reproductive: Male Reproductive:Male: As Per HPI, Prepubesant, Dyspareunia, Genital Lesions, Genital Pruritis, Pelvic Pain, Sexual Dysfunction, Penile Discharge, Genital Odor, Impotence, On ED Medications, Penile Implant, Other Past Patient History - Infectious Disease Hx of Infectious Diseases: None - Past Medical History & Family History Past Medical History?: Yes Pertinent Family History: Mother- LUPUS, Coagulation issues - Past Social History Smoking Status: Never Smoked Chewing Tobacco Use: No Cigar Use: No Alcohol: None Drugs: Denies - CARDIAC Hx Cardiac Disorders: Yes Hx Angina: No Hx Atrial Fibrillation: No Hx Cardia Arrhythmia: No Hx Circulatory Problems: No Hx Congestive Heart Failure: No Hx Heart Attack: No Hx Heart Murmur: No Hx Heart Transplant: No Hx Hypercholesterolemia: No Hx Hypertension: Yes (tx with short time on meds) Hx Hypotension: No Hx Internal Defibrillator: No Hx Mitral Valve Prolapse: No Hx Pacemaker: No Hx Peripheral Edema: No Hx Peripheral Vascular Disease: No - PULMONARY Hx Respiratory Disorders: No Hx Asthma: No Hx Bronchitis: No Hx Chronic Obstructive Pulmonary Disease (COPD): No Hx Emphysema: No Hx Lung Cancer: No Hx Pneumonia: No Hx Pulmonary Edema: No Hx Pulmonary Embolism: No Hx Respiratory Aspiration: No Hx Respiratory Tract Infection: No Hx Sleep Apnea: No Hx Tuberculosis: No - NEUROLOGICAL Hx Neurological Disorder: No Hx Alzheimer's Disease: No HX Cerebrovascular Accident: No Hx Dementia: No Hx Dizziness: No Hx Meningitis: No Hx Migraine: No Hx Multiple Sclerosis: No Hx Paralysis: No Hx Parkinson's Disease: No Hx Seizures: No Hx Syncope: No Hx Transient Ischemic Attacks (TIA): No Hx Vertigo: No - HEENT Hx HEENT Problems: No Hx Blind: No Hx Cataracts: No Hx Deafness: No Hx Difficulty Chewing: No Hx Epistaxis: No Hx Glaucoma: No Hx Macular Degeneration: No Hx Sinusitis: No - HEMATOLOGICAL/ONCOLOGICAL Hx Blood Transfusions: No Hx Blood Transfusion Reaction: No - MUSCULOSKELETAL/RHEUMATOLOGICAL Hx Degenerative Joint Disease: No Hx Falls: No Hx Fractures: No Hx Gout: No Hx Herniated Disk: No Hx Myasthenia Gravis: No Hx Osteoarthritis: No Hx Osteomyelitis: No Hx Osteoporosis: No Hx Rhabdomyolysis: No Hx Rheumatoid Arthritis: No Hx Spinal Stenosis: No Hx Unsteady Gait: No - GASTROINTESTINAL Hx Gastrointestinal Disorders: No Hx Bowel Surgery: No Hx Clostridium Difficile: No Hx Colitis: No Hx Colostomy: No Hx Constipation: No Hx Crohn's Disease: No Hx Diarrhea: No Hx Diverticulitis: No Hx Esophageal Varices: No Hx Fatty Liver Disease: No Hx Gall Bladder Disease: No Hx Gastritis: No Hx Gastroesophageal Reflux: No Hx Hemorrhoids: No Hx Ileostomy: No Hx Irritable Bowel: No Hx Liver Failure: No Hx Nausea: No Hx Pancreatitis: No HX Swallowing Problems: No Hx Ulcer: No Hx Vomiting: No - GENITOURINARY/GYNECOLOGICAL Hx Genitourinary Disorders: No Hx Bladder Cancer: No Hx Bladder Stone: No Hx Hematuria: No Hx Incontinence: No Hx Prostate Cancer: No Hx Prostate Problems: No Hx Reproductive Disorders: No Hx Sexually Transmitted Disorders: No Hx Urinary Tract Infection: No - PSYCHIATRIC Hx Psychophysiologic Disorder: No Hx Anxiety: No Hx Bipolar Disorder: No Hx Depression: No Hx Emotional Abuse: No Hx Hallucinations: No Hx Panic Symptoms: No Hx Paranoia: No Hx Post Traumatic Stress Disorder: No Hx Substance Use: No - SURGICAL HISTORY Hx Surgeries: No Hx Abdominal Aortic Aneurysm Repair: No Hx Amputation: No Hx Angiogram: Yes Hx Angioplasty: No Hx Appendectomy: No Hx Arteriovenous Shunt: No Hx Arthroscopy: No Hx Bile Duct Stent: No Hx Breast Biopsy: No Hx Cataract Extraction: No Hx Cardiac Catheterization: Yes Hx Carotid Endarterectomy: No Hx Section: No Hx Cholecystectomy: No Hx Coronary Artery Bypass Graft: No Hx Coronary Stent: No Hx Dilation and Curettage: No Hx Eye Surgery: No Hx Femoral-Popliteal Bypass Graft: No Hx Gastric Bypass Surgery: No Hx Herniorrhaphy: No Hx Hysterectomy: No Hx Joint Replacement: No Hx Valve Replacement: No Hx Vascular Surgery: No Hx Vascular Access Device: No - ANESTHESIA Hx Anesthesia Reactions: No Hx Malignant Hyperthermia: No Meds Allergies/Adverse Reactions: Allergies Allergy/AdvReac Type Severity Reaction Status Date / Time Sulfa (Sulfonamide AdvReac RASH Verified 10/02/16 15:20 Antibiotics) - Medications Medications: Current Medications Acetaminophen (Tylenol 325mg Tab) 650 mg PO Q4H PRN PRN Reason: Fever >100.4 F Aspirin (Ecotrin) 81 mg PO DAILY [facility] Last Admin: 10/05/16 10:15 Dose: 81 mg Carvedilol (Coreg) 3.125 mg PO BID [facility] Last Admin: 10/05/16 18:00 Dose: 3.125 mg Furosemide (Lasix) 20 mg IVP Q12 [facility] Last Admin: 10/05/16 10:00 Dose: Not Given Lisinopril (Zestril) 10 mg PO DAILY [facility] Last Admin: 10/05/16 10:16 Dose: 10 mg Pantoprazole Sodium (Protonix Inj) 40 mg IVP 0600 [facility] Last Admin: 10/05/16 06:06 Dose: 40 mg Warfarin Sodium (Coumadin) 5 mg PO 1800 [facility] PRN Reason: Protocol Last Admin: 10/05/16 18:00 Dose: 5 mg Physical Exam - Constitutional Appears: No Acute Distress - Head Exam Head Exam: ATRAUMATIC - Eye Exam Eye Exam: Conjunctival injection, EOMI, Normal appearance, Nystagmus, Periorbital swelling, Periorbital tenderness, PERRL, Scleral icterus - Cardiovascular Exam Cardiovascular Exam: Tachycardia, Systolic Murmur - Psychiatric Exam Psychiatric exam: Agitated, Anxious, Depressed, Flat Affect, Homicidal Ideation , Manic, Normal Affect, Normal Mood, Suicidal Ideation - Skin Skin Exam: Dry, Intact, Normal Color, Warm Results - Vital Signs Recent Vital Signs: Last Vital Signs Temp 98.2 F 10/05/16 17:44 Pulse 95 H 10/05/16 18:00 Resp 18 10/05/16 17:44 BP 126/82 10/05/16 18:00 Pulse Ox 95 10/05/16 05:43 - Labs Result Diagrams: 10/05/16 06:20 10/05/16 06:20 Labs: Laboratory Results - last 24 hr 10/05/16 10/05/16 06:20 06:20 WBC 8.8 RBC 4.96 Hgb 14.6 Hct 43.6 MCV 87.9 MCH 29.4 MCHC 33.5 RDW 12.9 Plt Count 204 MPV 11.4 H Gran % 60.8 Lymph % (Auto) 24.7 [place] % (Auto) 11.7 H Eos % (Auto) 2.3 Baso % (Auto) 0.5 Gran # 5.33 Lymph # 2.2 [place] # 1.0 H Eos # 0.2 Baso # 0.04 Sodium 142 Potassium 3.8 Chloride 102 Carbon Dioxide 28 Anion Gap 16 BUN 24 H Creatinine 1.3 Est GFR ( Amer) > 60 Est GFR (Non-Af Amer) > 60 Random Glucose 84 Calcium 9.1 Phosphorus 5.4 H Magnesium 2.2 Total Bilirubin 1.4 H AST 41 ALT 82 H Alkaline Phosphatase 61 NT-Pro-B Natriuret Pep 732 H Total Protein 6.3 Albumin 3.9 Globulin 2.3 Albumin/Globulin Ratio 1.7 - EKG Data EKG Interpreted by: Myself EKG shows normal: Sinus rhythm - EKG Data EKG Specific Queries Teller/QRS: Left Teller Deviation - EKG Data EKG comments: Sinus tachycardia Normal AV conduction PPRWP Non-specific ST changes QRS - 88ms Assessment & Plan - Assessment and Plan (Free Text) Plan: 1) Dilated Cardiomyopathy/ SHF/ NYHA Class 3- Etiology of CM is unclear. Likely secondary to Myocarditis (idiopathic/viral/infiltrative) vs HTN cardiomyopathy. Patient's medical therapy is being optimized. Risk of SCD discussed in detail. Possibility of AICD implantation discussed in detail. Recommend 3 month trial of maximal medical therapy and if no improvement will recommend AICD. Option of LIFEVEST for the intervening period discussed and patient is agreeable. Will call to make arrangements. 2)HTN - continue current medications 3) Obesity- HF diet, caloric restriction 4) KESHA Discussed with Dr Murguia at length.
[2016-10-06 07:29] LABS: INR 1.21 (0.93-1.08); PROTHROMBIN TIME 13.1 Seconds (9.9-11.8)
[2016-10-06 07:31] LABS: HEMOGLOBIN 15.3 gm/dL (14.0-18.0); MEAN CORPUSCULAR HEMOGLOBIN 29.6 pg (25.0-35.0); MEAN CORPUSCULAR HGB CONC 33.6 g/dl (31.0-37.0); MEAN PLATELET VOLUME 11.3 fl (7.0-11.0); RBC 5.17 10^6/uL (3.5-6.1); RED CELL DISTRIBUTION WIDTH 13.1 % (11.5-14.5)
[2016-10-06 07:33] LABS: BLOOD UREA NITROGEN 20 mg/dL (7-21); GFR AFRICAN-AMERICAN > 60; GFR NON-AFRICAN AMERICAN > 60
[2016-10-06 07:35] LABS: ALB/GLOB RATIO 1.6 (1.1-1.8); ALT/SGPT 99 U/L (7-56); AST/SGOT 57 U/L (15-59); CALCIUM 9.2 mg/dL (8.4-10.5)
--- NOTE | 2016-10-06 12:42 | CP.PCM.PN ---
Subjective - Date & Time of Evaluation Date of Evaluation: 10/06/16 Time of Evaluation: 12:39 - Subjective Subjective: no c/p, sob or groin bleeding Objective - Vital Signs/Intake and Output Vital Signs (last 24 hours): Temp Pulse Resp BP Pulse Ox 98.7 F 85 20 123/85 98 10/06/16 11:39 10/06/16 11:39 10/06/16 11:39 10/06/16 11:39 10/06/16 05:46 Intake and Output: 10/06/16 10/06/16 06:59 18:59 Intake Total 1560 Output Total 2800 Balance -1240 - Medications Medications: Current Medications Acetaminophen (Tylenol 325mg Tab) 650 mg PO Q4H PRN PRN Reason: Fever >100.4 F Aspirin (Ecotrin) 81 mg PO DAILY [facility] Last Admin: 10/06/16 10:25 Dose: 81 mg Carvedilol (Coreg) 3.125 mg PO BID [facility] Last Admin: 10/06/16 10:25 Dose: 3.125 mg Furosemide (Lasix) 20 mg IVP Q12 [facility] Last Admin: 10/06/16 10:24 Dose: 20 mg Lisinopril (Zestril) 10 mg PO DAILY [facility] Last Admin: 10/06/16 10:24 Dose: 10 mg Pantoprazole Sodium (Protonix Inj) 40 mg IVP 0600 [facility] Last Admin: 10/06/16 05:23 Dose: 40 mg Warfarin Sodium (Coumadin) 7.5 mg PO 1800 [facility] PRN Reason: Protocol - Labs Labs: 10/06/16 07:15 10/06/16 07:15 PT 13.1 Seconds (9.9-11.8) H 10/06/16 07:15 INR 1.21 (0.93-1.08) H 10/06/16 07:15 APTT 26.4 Seconds (23.7-30.8) 10/02/16 15:40 - Head Exam Head Exam: NORMAL INSPECTION - Eye Exam Eye Exam: Normal appearance - Neck Exam Neck Exam: Normal Inspection - Respiratory Exam Respiratory Exam: Clear to Ausculation Bilateral - Cardiovascular Exam Cardiovascular Exam: REGULAR RHYTHM - Extremities Exam Extremities Exam: Normal Inspection Assessment and Plan - Assessment and Plan (Free Text) Assessment: dilated CM Plan: Cont. Acetaminophen (Tylenol 325mg Tab) 650 mg PO Q4H PRN PRN Reason: Fever >100.4 F Aspirin (Ecotrin) 81 mg PO DAILY [facility] Last Admin: 10/06/16 10:25 Dose: 81 mg Carvedilol (Coreg) 3.125 mg PO BID [facility] Last Admin: 10/06/16 10:25 Dose: 3.125 mg Furosemide (Lasix) 20 mg IVP Q12 [facility] Last Admin: 10/06/16 10:24 Dose: 20 mg Lisinopril (Zestril) 10 mg PO DAILY [facility] Last Admin: 10/06/16 10:24 Dose: 10 mg Pantoprazole Sodium (Protonix Inj) 40 mg IVP 0600 [facility] Last Admin: 10/06/16 05:23 Dose: 40 mg Warfarin Sodium (Coumadin) 7.5 mg PO 1800 [facility] PRN Reason: Protocol Discussed with and Dr. Atkinson For External Vest placement Consider Aldactone
--- NOTE | 2016-10-06 14:44 | CP.PCM.PN ---
<FILIPE BATES - Last Filed: 10/06/16 15:01> Subjective - Date & Time of Evaluation Date of Evaluation: 10/06/16 Time of Evaluation: 09:20 - Subjective Subjective: Pt was seen and examined at bedside today. Pt denies cp, palpitations, headaches , fevers, abd pain, n/v or any other complaints. Pt awaiting for lifevest rep to discuss with him, and is considering having a home lifevest eval. Objective - Vital Signs/Intake and Output Vital Signs (last 24 hours): Temp Pulse Resp BP Pulse Ox 98.7 F 85 20 123/85 98 10/06/16 11:39 10/06/16 11:39 10/06/16 11:39 10/06/16 11:39 10/06/16 05:46 Intake and Output: 10/06/16 10/06/16 06:59 18:59 Intake Total 1560 Output Total 2800 Balance -1240 - Medications Medications: Current Medications Acetaminophen (Tylenol 325mg Tab) 650 mg PO Q4H PRN PRN Reason: Fever >100.4 F Aspirin (Ecotrin) 81 mg PO DAILY [facility] Last Admin: 10/06/16 10:25 Dose: 81 mg Carvedilol (Coreg) 3.125 mg PO BID [facility] Last Admin: 10/06/16 10:25 Dose: 3.125 mg Furosemide (Lasix) 20 mg IVP Q12 [facility] Last Admin: 10/06/16 10:24 Dose: 20 mg Lisinopril (Zestril) 10 mg PO DAILY [facility] Last Admin: 10/06/16 10:24 Dose: 10 mg Pantoprazole Sodium (Protonix Inj) 40 mg IVP 0600 [facility] Last Admin: 10/06/16 05:23 Dose: 40 mg Warfarin Sodium (Coumadin) 7.5 mg PO 1800 [facility] PRN Reason: Protocol - Labs Labs: 10/06/16 07:15 10/06/16 07:15 PT 13.1 Seconds (9.9-11.8) H 10/06/16 07:15 INR 1.21 (0.93-1.08) H 10/06/16 07:15 APTT 26.4 Seconds (23.7-30.8) 10/02/16 15:40 - Constitutional Appears: Well, No Acute Distress - Head Exam Head Exam: ATRAUMATIC, NORMOCEPHALIC - Eye Exam Eye Exam: EOMI, Normal appearance, PERRL - ENT Exam ENT Exam: Mucous Membranes Moist, Normal Exam - Respiratory Exam Respiratory Exam: Clear to Ausculation Bilateral, NORMAL BREATHING PATTERN. absent: Rales, Rhonchi, Wheezes, Respiratory Distress - Cardiovascular Exam Cardiovascular Exam: RRR. absent: Gallop, Rubs, Murmur - Neurological Exam Neurological Exam: Alert, Awake, Oriented x3 - Psychiatric Exam Psychiatric exam: Normal Affect, Normal Mood - Skin Skin Exam: Normal Color, Warm. absent: Cyanosis Assessment and Plan - Assessment and Plan (Free Text) Assessment: Mr. Kang is a 26yo M with PMHx of HTN presents with worsening SOB, cough and abdominal distension. 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 He has been initiated on HF therapy and clinical condition has improved. 1. Dilated Cardiomyopathy 2. HTN 3. Obesity Plan: 1. Dilated Cardiomyopathy of unknown etiology, likely HTN cardiomyopathy vs idiopathic/viral/infiltrative - Pt waiting for [facility]EVEST consult and eval - cardio recommends 3months maximal medical rx then AICD if not improved - coumadin increased to 7.5 (INR 1.21) - continue Lasix 20q12, Coreg, Lisonopril 2. HTN -continue meds 3. Obesity - recommend calorie restriction GI/DVT ppx: Diet: HHD Case seen, discussed and full evaluated with attending, Dr. Palak Bates, PGY1 <Cliff Cid B - Last Filed: 10/07/16 17:38> Objective - Vital Signs/Intake and Output Vital Signs (last 24 hours): Temp Pulse Resp BP Pulse Ox 97.8 F 74 21 128/70 99 10/07/16 12:00 10/07/16 17:18 10/07/16 12:00 10/07/16 17:18 10/07/16 09:56 Intake and Output: 10/07/16 10/07/16 06:59 18:59 Intake Total 900 Output Total 2150 Balance -1250 - Medications Medications: Current Medications Acetaminophen (Tylenol 325mg Tab) 650 mg PO Q4H PRN PRN Reason: Fever >100.4 F Aspirin (Ecotrin) 81 mg PO DAILY [facility] Last Admin: 10/07/16 10:21 Dose: 81 mg Carvedilol (Coreg) 3.125 mg PO BID [facility] Last Admin: 10/07/16 17:18 Dose: 3.125 mg Furosemide (Lasix) 20 mg IVP Q12 [facility] Last Admin: 10/07/16 09:07 Dose: 20 mg Lisinopril (Zestril) 10 mg PO DAILY [facility] Last Admin: 10/07/16 09:10 Dose: 10 mg Pantoprazole Sodium (Protonix Inj) 40 mg IVP 0600 [facility] Last Admin: 10/07/16 05:06 Dose: 40 mg Spironolactone (Aldactone) 25 mg PO DAILY [facility] Last Admin: 10/07/16 09:09 Dose: 25 mg Warfarin Sodium (Coumadin) 10 mg PO 1800 [facility] PRN Reason: Protocol Last Admin: 10/07/16 17:18 Dose: 10 mg - Labs Labs: 10/07/16 07:10 10/07/16 07:10 PT 12.9 Seconds (9.9-11.8) H 10/07/16 07:10 INR 1.19 (0.93-1.08) H 10/07/16 07:10 APTT 26.4 Seconds (23.7-30.8) 10/02/16 15:40 Attending/Attestation - Attestation I have personally seen and examined this patient.: Yes I have fully participated in the care of the patient.: Yes I have reviewed all pertinent clinical information, including history, physical exam and plan: Yes Notes (Text): I have seen and examined the patient at bedside. Agree with the note dictated above with the following additions/ exceptions: Briefly this is 26 year old male with history of HTN, dilated cardiomyopathy, Obesity who was admitted for evaluation of worsening SOB, cough and abdominal distension and found to have dilated CM with EF of 15-20%. He has been initiated on HF therapy and clinical condition has improved. Awaiting lifevest. EP consult pending. Coumadin increased to 7.5 today. Will discuss with tree expert. Dr Cliff Cid
[2016-10-07 07:46] LABS: HEMOGLOBIN 15.3 gm/dL (14.0-18.0); MEAN CELL VOLUME 87.8 fL (80.0-105.0); MEAN CORPUSCULAR HEMOGLOBIN 29.5 pg (25.0-35.0); MEAN CORPUSCULAR HGB CONC 33.6 g/dl (31.0-37.0); MEAN PLATELET VOLUME 11.3 fl (7.0-11.0); RBC 5.18 10^6/uL (3.5-6.1); WHITE BLOOD COUNT 8.2 10^3/ul (4.5-11.0)
[2016-10-07 07:52] LABS: INR 1.19 (0.93-1.08); PROTHROMBIN TIME 12.9 Seconds (9.9-11.8)
[2016-10-07 08:03] LABS: ALB/GLOB RATIO 1.8 (1.1-1.8); ALBUMIN 4.1 g/dL (3.0-4.8); ALT/SGPT 76 U/L (7-56); AST/SGOT 44 U/L (15-59); BLOOD UREA NITROGEN 18 mg/dL (7-21); CALCIUM 9.4 mg/dL (8.4-10.5); GFR AFRICAN-AMERICAN > 60; GFR NON-AFRICAN AMERICAN > 60
--- NOTE | 2016-10-07 16:10 | CP.PCM.PN ---
<FILIPE MATA - Last Filed: 10/07/16 16:12> Subjective - Date & Time of Evaluation Date of Evaluation: 10/07/16 Time of Evaluation: 10:30 - Subjective Subjective: The patient was seen today and examined. The patient has no new complaints and is awaiting [facility] eval. Denies chest pain, palpitations, lightheadedness, headaches, shortness of breath, weakness, fevers, chills, n/v/d. Objective - Vital Signs/Intake and Output Vital Signs (last 24 hours): Temp Pulse Resp BP Pulse Ox 97.8 F 85 21 129/86 99 10/07/16 12:00 10/07/16 12:00 10/07/16 12:00 10/07/16 12:00 10/07/16 09:56 Intake and Output: 10/07/16 10/07/16 06:59 18:59 Intake Total 900 Output Total 2150 Balance -1250 - Medications Medications: Current Medications Acetaminophen (Tylenol 325mg Tab) 650 mg PO Q4H PRN PRN Reason: Fever >100.4 F Aspirin (Ecotrin) 81 mg PO DAILY [facility] Last Admin: 10/07/16 10:21 Dose: 81 mg Carvedilol (Coreg) 3.125 mg PO BID [facility] Last Admin: 10/07/16 09:10 Dose: 3.125 mg Furosemide (Lasix) 20 mg IVP Q12 [facility] Last Admin: 10/07/16 09:07 Dose: 20 mg Lisinopril (Zestril) 10 mg PO DAILY [facility] Last Admin: 10/07/16 09:10 Dose: 10 mg Pantoprazole Sodium (Protonix Inj) 40 mg IVP 0600 [facility] Last Admin: 10/07/16 05:06 Dose: 40 mg Spironolactone (Aldactone) 25 mg PO DAILY [facility] Last Admin: 10/07/16 09:09 Dose: 25 mg Warfarin Sodium (Coumadin) 10 mg PO 1800 [facility] PRN Reason: Protocol - Labs Labs: 10/07/16 07:10 10/07/16 07:10 PT 12.9 Seconds (9.9-11.8) H 10/07/16 07:10 INR 1.19 (0.93-1.08) H 10/07/16 07:10 APTT 26.4 Seconds (23.7-30.8) 10/02/16 15:40 - Constitutional Appears: Well, Non-toxic, No Acute Distress - Head Exam Head Exam: ATRAUMATIC, NORMAL INSPECTION, NORMOCEPHALIC - Eye Exam Eye Exam: EOMI, Normal appearance, PERRL - ENT Exam ENT Exam: Mucous Membranes Moist, Normal Exam - Respiratory Exam Respiratory Exam: Clear to Ausculation Bilateral, NORMAL BREATHING PATTERN. absent: Chest Wall Tenderness, Rales, Rhonchi, Wheezes, Respiratory Distress - Cardiovascular Exam Cardiovascular Exam: REGULAR RHYTHM, +S1, +S2. absent: Rubs, Murmur - GI/Abdominal Exam GI & Abdominal Exam: Soft, Normal Bowel Sounds. absent: Distended, Tenderness - Neurological Exam Neurological Exam: Alert, Awake, Normal Gait, Oriented x3 - Psychiatric Exam Psychiatric exam: Normal Affect, Normal Mood - Skin Skin Exam: Normal Color. absent: Cyanosis, Pallor Assessment and Plan - Assessment and Plan (Free Text) Assessment: Mr. Kang is a 26yo M with PMHx of HTN presents with worsening SOB, cough and abdominal distension. 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 He has been initiated on HF therapy and clinical condition has improved. 1. Dilated Cardiomyopathy 2. HTN 3. Obesity Plan: 1. Dilated Cardiomyopathy of unknown etiology, likely HTN cardiomyopathy vs idiopathic/viral/infiltrative - Pt waiting for [facility] eval ([facility] tech [facility] [phone]) - cardio recommends 3months maximal medical rx then AICD if not improved - coumadin increased to 10 (INR 1.19) - D/W Dr. Murguia, highly recommends patient stays to receive appropriate Coumadin rx until therapeutic INR. 2. HTN - continue meds 3. Obesity - recommend calorie restriction GI/DVT ppx: Diet: HHD Case seen, discussed and full evaluated with attending, Dr. Palak Mata, PGY1 <Cliff Cid - Last Filed: 10/07/16 17:40> Objective - Vital Signs/Intake and Output Vital Signs (last 24 hours): Temp Pulse Resp BP Pulse Ox 97.8 F 74 21 128/70 99 10/07/16 12:00 10/07/16 17:18 10/07/16 12:00 10/07/16 17:18 10/07/16 09:56 Intake and Output: 10/07/16 10/07/16 06:59 18:59 Intake Total 900 Output Total 2150 Balance -1250 - Medications Medications: Current Medications Acetaminophen (Tylenol 325mg Tab) 650 mg PO Q4H PRN PRN Reason: Fever >100.4 F Aspirin (Ecotrin) 81 mg PO DAILY [facility] Last Admin: 10/07/16 10:21 Dose: 81 mg Carvedilol (Coreg) 3.125 mg PO BID [facility] Last Admin: 10/07/16 17:18 Dose: 3.125 mg Furosemide (Lasix) 20 mg IVP Q12 [facility] Last Admin: 10/07/16 09:07 Dose: 20 mg Lisinopril (Zestril) 10 mg PO DAILY [facility] Last Admin: 10/07/16 09:10 Dose: 10 mg Pantoprazole Sodium (Protonix Inj) 40 mg IVP 0600 [facility] Last Admin: 10/07/16 05:06 Dose: 40 mg Spironolactone (Aldactone) 25 mg PO DAILY [facility] Last Admin: 10/07/16 09:09 Dose: 25 mg Warfarin Sodium (Coumadin) 10 mg PO 1800 [facility] PRN Reason: Protocol Last Admin: 10/07/16 17:18 Dose: 10 mg - Labs Labs: 10/07/16 07:10 10/07/16 07:10 PT 12.9 Seconds (9.9-11.8) H 10/07/16 07:10 INR 1.19 (0.93-1.08) H 10/07/16 07:10 APTT 26.4 Seconds (23.7-30.8) 10/02/16 15:40 Attending/Attestation - Attestation I have personally seen and examined this patient.: Yes I have fully participated in the care of the patient.: Yes I have reviewed all pertinent clinical information, including history, physical exam and plan: Yes Notes (Text): I have seen and examined the patient at bedside. Agree with the note dictated above with the following additions/ exceptions: Briefly this is 26 year old male with history of HTN, dilated cardiomyopathy, Obesity who was admitted for evaluation of worsening SOB, cough and abdominal distension and found to have dilated CM with EF of 15-20%. He has been initiated on HF therapy and clinical condition has improved. Awaiting lifevest. INR still subtherapeutic. Coumadin increased to 10 mg today. Will discuss with machine spring former. Follow up in [facility] clinic. Dr Cliff Cid
[2016-10-08 04:38] VITALS: RESP 20
[2016-10-08 06:59] VITALS: TEMP 97
[2016-10-08 07:23] LABS: HEMOGLOBIN 15.4 gm/dL (14.0-18.0); MEAN CELL VOLUME 88.7 fL (80.0-105.0); MEAN CORPUSCULAR HEMOGLOBIN 29.6 pg (25.0-35.0); MEAN CORPUSCULAR HGB CONC 33.4 g/dl (31.0-37.0); MEAN PLATELET VOLUME 11.6 fl (7.0-11.0); RBC 5.2 10^6/uL (3.5-6.1); RED CELL DISTRIBUTION WIDTH 12.9 % (11.5-14.5); WHITE BLOOD COUNT 6.9 10^3/ul (4.5-11.0)
[2016-10-08 07:25] LABS: INR 1.34 (0.93-1.08); PROTHROMBIN TIME 14.5 Seconds (9.9-11.8)
[2016-10-08 07:31] LABS: ALB/GLOB RATIO 1.6 (1.1-1.8); ALBUMIN 4.1 g/dL (3.0-4.8); ALT/SGPT 88 U/L (7-56); AST/SGOT 42 U/L (15-59); BLOOD UREA NITROGEN 23 mg/dL (7-21); CALCIUM 9.5 mg/dL (8.4-10.5); GFR AFRICAN-AMERICAN > 60; GFR NON-AFRICAN AMERICAN > 60
[2016-10-08 09:10] VITALS: O2SAT 100
[2016-10-08 10:19] VITALS: BP 121/73; PULSE 73
--- NOTE | 2016-10-09 01:16 | CP.PCM.DIS ---
<FILIPE MATA - Last Filed: 10/09/16 00:59> Provider - Provider Date of Admission: 10/04/16 11:13 Attending physician: Cliff Cid MD Primary care physician: NO PRIMARY CARE PROVIDER Time Spent in preparation of Discharge (in minutes): 50 Hospital Course - Lab Results Lab Results: Most Recent Lab Values WBC 6.9 10^3/ul (4.5-11.0) 10/08/16 06:20 RBC 5.20 10^6/uL (3.5-6.1) 10/08/16 06:20 Hgb 15.4 gm/dL (14.0-18.0) 10/08/16 06:20 Hct 46.1 % (42.0-52.0) 10/08/16 06:20 MCV 88.7 fL (80.0-105.0) 10/08/16 06:20 MCH 29.6 pg (25.0-35.0) 10/08/16 06:20 MCHC 33.4 g/dl (31.0-37.0) 10/08/16 06:20 RDW 12.9 % (11.5-14.5) 10/08/16 06:20 Plt Count 211 10^3/uL (120.0-450.0) 10/08/16 06:20 MPV 11.6 fl (7.0-11.0) H 10/08/16 06:20 Gran % 60.8 % (50.0-68.0) 10/05/16 06:20 Lymph % (Auto) 24.7 % (22.0-35.0) 10/05/16 06:20 [place] % (Auto) 11.7 % (1.0-6.0) H 10/05/16 06:20 Eos % (Auto) 2.3 % (1.5-5.0) 10/05/16 06:20 Baso % (Auto) 0.5 % (0.0-3.0) 10/05/16 06:20 Gran # 5.33 (1.4-6.5) 10/05/16 06:20 Lymph # 2.2 (1.2-3.4) 10/05/16 06:20 [place] # 1.0 (0.1-0.6) H 10/05/16 06:20 Eos # 0.2 (0.0-0.7) 10/05/16 06:20 Baso # 0.04 K/mm3 (0.0-2.0) 10/05/16 06:20 PT 14.5 Seconds (9.9-11.8) H 10/08/16 06:20 INR 1.34 (0.93-1.08) H 10/08/16 06:20 APTT 26.4 Seconds (23.7-30.8) 10/02/16 15:40 D-Dimer, Quantitative 1.14 mg/L FEU (0-0.50) H 10/02/16 15:40 Sodium 143 mmol/L (132-148) 10/08/16 06:20 Potassium 4.2 mmol/L (3.6-5.0) 10/08/16 06:20 Chloride 100 mmol/L (98-107) 10/08/16 06:20 Carbon Dioxide 31 mmol/L (21-33) 10/08/16 06:20 Anion Gap 16 (10-20) 10/08/16 06:20 BUN 23 mg/dL (7-21) H 10/08/16 06:20 Creatinine 1.4 mg/dL (0.5-1.4) 10/08/16 06:20 Est GFR ( Amer) > 60 10/08/16 06:20 Est GFR (Non-Af Amer) > 60 10/08/16 06:20 Random Glucose 84 mg/dL (70-110) 10/08/16 06:20 Calcium 9.5 mg/dL (8.4-10.5) 10/08/16 06:20 Phosphorus 5.4 mg/dL (2.5-4.5) H 10/05/16 06:20 Magnesium 2.2 mg/dL (1.7-2.2) 10/05/16 06:20 Total Bilirubin 1.0 mg/dL (0.2-1.3) 10/08/16 06:20 AST 42 U/L (15-59) 10/08/16 06:20 ALT 88 U/L (7-56) H 10/08/16 06:20 Alkaline Phosphatase 66 U/L (38-133) 10/08/16 06:20 Lactate Dehydrogenase 664 U/L (333-699) 10/02/16 15:40 Total Creatine Kinase 118 U/L (35-230) 10/02/16 15:40 Troponin I 0.05 ng/mL 10/03/16 06:30 NT-Pro-B Natriuret Pep 732 pg/mL (0-450) H 10/05/16 06:20 Total Protein 6.6 g/dL (5.8-8.3) 10/08/16 06:20 Albumin 4.1 g/dL (3.0-4.8) 10/08/16 06:20 Globulin 2.6 gm/dL 10/08/16 06:20 Albumin/Globulin Ratio 1.6 (1.1-1.8) 10/08/16 06:20 Lipase 80 U/L (23-300) 10/02/16 15:40 Ethanolamine None detected 10/02/16 22:15 TSH 3rd Generation 1.56 mIU/mL (0.46-4.68) 10/02/16 22:15 Plasma Metanephrine TNP 10/03/16 06:30 Plasma Normetanephrine TNP 10/03/16 06:30 Plas Total Metaneph TNP 10/03/16 06:30 Urine Color Yellow (YELLOW) 10/02/16 17:25 Urine Appearance Clear (CLEAR) 10/02/16 17:25 Urine pH 6.0 (4.7-8.0) 10/02/16 17:25 Ur Specific Ayer >= 1.030 (1.005-1.035) 10/02/16 17:25 Urine Protein 100 mg/dL (<30 mg/dL) H 10/02/16 17:25 Urine Glucose (UA) Negative mg/dL (NEGATIVE) 10/02/16 17:25 Urine Ketones Negative mg/dL (NEGATIVE) 10/02/16 17:25 Urine Blood Trace-intact (NEGATIVE) H 10/02/16 17:25 Urine Nitrate Negative (NEGATIVE) 10/02/16 17:25 Urine Bilirubin Negative (NEGATIVE) 10/02/16 17:25 Urine Urobilinogen 0.2 E.U./dL (<1 E.U./dL) 10/02/16 17:25 Ur Leukocyte Esterase Negative Matteo/uL (NEGATIVE) 10/02/16 17:25 Urine RBC 0 - 2 /hpf (0-2) 10/02/16 17:25 Urine WBC 0 - 2 /hpf (0-6) 10/02/16 17:25 Ur Epithelial Cells None /hpf (0-5) 10/02/16 17:25 Urine Bacteria Small (NEG) 10/02/16 17:25 Hyaline Casts 0 - 2 /hpf 10/02/16 17:25 Toxicology Panel see note 10/02/16 22:15 Methyl Alcohol Level None detected 10/02/16 22:15 Isopropanol None detected 10/02/16 22:15 Acetone Level None detected 10/02/16 22:15 Hepatitis A IgM Ab Negative (NEGATIVE) 10/03/16 07:00 Hep Bs Antigen Negative (NEGATIVE) 10/03/16 07:00 Hep B Core IgM Ab Negative (NEGATIVE) 10/03/16 07:00 Hepatitis C Antibody Negative (NEGATIVE) 10/03/16 07:00 - Hospital Course Hospital Course: Mr. Hussein Kang is a 26yo male with past medical history of hypertension that presents on 10/02/16 c/o abdominal pain. Patient reports that the pain localizes to the epigastric region and has been ongoing for the past week now. He states that the pain is intermittent and non-radiating however it exacerbates on movement and standing. He also reported shortness of breath when laying on his back and has recently been trying to sleep in a reclined position. Patient also noted that the abdominal pain is associated with bloating and a decreased appetite. He had tried to use pepto bismol, prilosec and ibuprofen without relief. States that the pain is now a 2/10 in severity however he decided to come in for evaluation because it has affected his ADL's. Denies any changes in bowel/bladder habits, nausea, vomiting, fever, chills, constipation, diarrhea, melena, hematochezia, hematemesis, chest pain, palpitations. On arrival to the ED, his vitals were as follows: BP of 161/127, heart rate 119bpm, respiratory rate 18, O2sat 99% on room air. EKG revealed sinus tachycardia at 116bpm with LAD, left atrial enlargement, and nonspecific T wave abnormality. Troponin was indeterminate x3 (0.07, 0.06, 0.05). BNP was elevated at 3660. ECHO revealed four chamber dilation with EF 15-20%, moderate MR, mild to moderate pulmonary hypertension, and with no vegetations or thrombi noted. Cardiology was consulted. For the pt's hypertensive urgency, pt was given Coreg 12.5mg stat tab; Continue lisinopril 10mg PO daily. For pt's abd pain, GI was consulted; lipase was WNL; abd US revealed no acute findings however was noted to have gallbladder wall thickening with no evidence of cholelithiasis, sludge or pericholecystic fluid. Patient was transferred to the medicine floors and prepped for catheterization on 10/04/16. Cath showed normal coronaries. EP was consulted for low EF and suggested LIFEVEST. On 10/05/16, Pt started on Coumadin 5mg and INR was to be checked in the morning. On 10/06/16, pt's INR remained subtherapeutic, and Coumadin was increased to 7.5mg daily, however pt showed interest in leaving AMA. Pt was strongly encouraged to stay in the hospital and continue his care. On 10/07/16, INR was still subtherapeutic, and coumadin was increased to 10mg. LIFEVEST was obtained. On 10/08/16, INR was subtherapeutic again at 1.34. Pt was interested in signing out against medical advice (AMA). Case was discussed with Dr. Murguia. The medicine team of attending physician, senior resident, and video production intern resident all fully explained the benefits and risks of staying, and that leaving with a subtherapeutic INR increases his risks clotting disorders which could lead to stroke, WI, among other thromboembolic disorders and ultimately . Having a non-stable INR also poses risk for hemorrhaging and other bleeding disorders. 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 Patient had no physical complaints and stated that his chest pain had resolved, and denied palpitations, sob, n/v/d or any weakness. Patient was prepped for signing out AMA, and given scripts for Coumadin 5mg, Coreg, Lasix 20q12, Lisinopril, Aldactone. Appointment was made for pt to come for INR check Wednesday10/12/16 at 9AM. Pt was instructed to return to ED if any symptoms of altered mental status, chest pain, palpitations, dizziness, shortness of breath, n/v, changes in vision or any weakness were to arise. Pt was told to return ED if he was unable to make the appointment on Wednesday for his INR check. - Date & Time of H&P Date of H&P: 10/02/16 Time of H&P: 20:25 Discharge Exam - Head Exam Head Exam: ATRAUMATIC, NORMAL INSPECTION, NORMOCEPHALIC - Eye Exam Eye Exam: EOMI, Normal appearance, PERRL - ENT Exam ENT Exam: Mucous Membranes Moist, Normal Exam - Respiratory Exam Respiratory Exam: Clear to PA & Lateral, NORMAL BREATHING PATTERN. absent: Chest Wall Tenderness, Rales, Rhonchi, Wheezes, Respiratory Distress - Cardiovascular Exam Cardiovascular Exam: REGULAR RHYTHM, +S1, +S2. absent: Diastolic murmur, Gallop , JVD, Rubs, Systolic Murmur - GI/Abdominal Exam GI & Abdominal Exam: Normal Bowel Sounds, Soft, Unremarkable. absent: Distended , Tenderness - Extremities Exam Extremities exam: full ROM - Neurological Exam Neurological exam: Alert, Normal Gait, Oriented x3 - Psychiatric Exam Psychiatric exam: Normal Affect, Normal Mood - Skin Skin Exam: Normal Color, Warm Discharge Plan - Follow Up Plan Condition: STABLE Disposition: HOME/ ROUTINE Referrals: PCP,NO [Primary Care Provider] - <Cliff Cid - Last Filed: 10/12/16 13:48> Provider - Provider Date of Admission: 10/04/16 11:13 Attending physician: Cliff Cid MD Primary care physician: NO PRIMARY CARE PROVIDER Hospital Course - Lab Results Lab Results: Most Recent Lab Values WBC 6.9 10^3/ul (4.5-11.0) 10/08/16 06:20 RBC 5.20 10^6/uL (3.5-6.1) 10/08/16 06:20 Hgb 15.4 gm/dL (14.0-18.0) 10/08/16 06:20 Hct 46.1 % (42.0-52.0) 10/08/16 06:20 MCV 88.7 fL (80.0-105.0) 10/08/16 06:20 MCH 29.6 pg (25.0-35.0) 10/08/16 06:20 MCHC 33.4 g/dl (31.0-37.0) 10/08/16 06:20 RDW 12.9 % (11.5-14.5) 10/08/16 06:20 Plt Count 211 10^3/uL (120.0-450.0) 10/08/16 06:20 MPV 11.6 fl (7.0-11.0) H 10/08/16 06:20 Gran % 60.8 % (50.0-68.0) 10/05/16 06:20 Lymph % (Auto) 24.7 % (22.0-35.0) 10/05/16 06:20 [place] % (Auto) 11.7 % (1.0-6.0) H 10/05/16 06:20 Eos % (Auto) 2.3 % (1.5-5.0) 10/05/16 06:20 Baso % (Auto) 0.5 % (0.0-3.0) 10/05/16 06:20 Gran # 5.33 (1.4-6.5) 10/05/16 06:20 Lymph # 2.2 (1.2-3.4) 10/05/16 06:20 [place] # 1.0 (0.1-0.6) H 10/05/16 06:20 Eos # 0.2 (0.0-0.7) 10/05/16 06:20 Baso # 0.04 K/mm3 (0.0-2.0) 10/05/16 06:20 PT 14.5 Seconds (9.9-11.8) H 10/08/16 06:20 INR 1.34 (0.93-1.08) H 10/08/16 06:20 APTT 26.4 Seconds (23.7-30.8) 10/02/16 15:40 D-Dimer, Quantitative 1.14 mg/L FEU (0-0.50) H 10/02/16 15:40 Sodium 143 mmol/L (132-148) 10/08/16 06:20 Potassium 4.2 mmol/L (3.6-5.0) 10/08/16 06:20 Chloride 100 mmol/L (98-107) 10/08/16 06:20 Carbon Dioxide 31 mmol/L (21-33) 10/08/16 06:20 Anion Gap 16 (10-20) 10/08/16 06:20 BUN 23 mg/dL (7-21) H 10/08/16 06:20 Creatinine 1.4 mg/dL (0.5-1.4) 10/08/16 06:20 Est GFR ( Amer) > 60 10/08/16 06:20 Est GFR (Non-Af Amer) > 60 10/08/16 06:20 Random Glucose 84 mg/dL (70-110) 10/08/16 06:20 Calcium 9.5 mg/dL (8.4-10.5) 10/08/16 06:20 Phosphorus 5.4 mg/dL (2.5-4.5) H 10/05/16 06:20 Magnesium 2.2 mg/dL (1.7-2.2) 10/05/16 06:20 Total Bilirubin 1.0 mg/dL (0.2-1.3) 10/08/16 06:20 AST 42 U/L (15-59) 10/08/16 06:20 ALT 88 U/L (7-56) H 10/08/16 06:20 Alkaline Phosphatase 66 U/L (38-133) 10/08/16 06:20 Lactate Dehydrogenase 664 U/L (333-699) 10/02/16 15:40 Total Creatine Kinase 118 U/L (35-230) 10/02/16 15:40 Troponin I 0.05 ng/mL 10/03/16 06:30 NT-Pro-B Natriuret Pep 732 pg/mL (0-450) H 10/05/16 06:20 Total Protein 6.6 g/dL (5.8-8.3) 10/08/16 06:20 Albumin 4.1 g/dL (3.0-4.8) 10/08/16 06:20 Globulin 2.6 gm/dL 10/08/16 06:20 Albumin/Globulin Ratio 1.6 (1.1-1.8) 10/08/16 06:20 Lipase 80 U/L (23-300) 10/02/16 15:40 Renin 0.47 ng/mL/h (0.25-5.82) 10/03/16 06:30 Aldosterone <1 ng/dL 10/03/16 06:30 Aldosterone/Renin Ratio See note Ratio (0.9-28.9) 10/03/16 06:30 Ethanolamine None detected 10/02/16 22:15 TSH 3rd Generation 1.56 mIU/mL (0.46-4.68) 10/02/16 22:15 Plasma Metanephrine 25 pg/mL (<=57) 10/07/16 07:10 Plasma Normetanephrine 110 pg/mL (<=148) 10/07/16 07:10 Plas Total Metaneph 135 pg/mL (<=205) 10/07/16 07:10 Urine Color Yellow (YELLOW) 10/02/16 17:25 Urine Appearance Clear (CLEAR) 10/02/16 17:25 Urine pH 6.0 (4.7-8.0) 10/02/16 17:25 Ur Specific [place] >= 1.030 (1.005-1.035) 10/02/16 17:25 Urine Protein 100 mg/dL (<30 mg/dL) H 10/02/16 17:25 Urine Glucose (UA) Negative mg/dL (NEGATIVE) 10/02/16 17:25 Urine Ketones Negative mg/dL (NEGATIVE) 10/02/16 17:25 Urine Blood Trace-intact (NEGATIVE) H 10/02/16 17:25 Urine Nitrate Negative (NEGATIVE) 10/02/16 17:25 Urine Bilirubin Negative (NEGATIVE) 10/02/16 17:25 Urine Urobilinogen 0.2 E.U./dL (<1 E.U./dL) 10/02/16 17:25 Ur Leukocyte Esterase Negative Matteo/uL (NEGATIVE) 10/02/16 17:25 Urine RBC 0 - 2 /hpf (0-2) 10/02/16 17:25 Urine WBC 0 - 2 /hpf (0-6) 10/02/16 17:25 Ur Epithelial Cells None /hpf (0-5) 10/02/16 17:25 Urine Bacteria Small (NEG) 10/02/16 17:25 Hyaline Casts 0 - 2 /hpf 10/02/16 17:25 Toxicology Panel see note 10/02/16 22:15 Methyl Alcohol Level None detected 10/02/16 22:15 Isopropanol None detected 10/02/16 22:15 Acetone Level None detected 10/02/16 22:15 Hepatitis A IgM Ab Negative (NEGATIVE) 10/03/16 07:00 Hep Bs Antigen Negative (NEGATIVE) 10/03/16 07:00 Hep B Core IgM Ab Negative (NEGATIVE) 10/03/16 07:00 Hepatitis C Antibody Negative (NEGATIVE) 10/03/16 07:00 Attending/Attestation - Attestation I have personally seen and examined this patient.: Yes I have fully participated in the care of the patient.: Yes I have reviewed all pertinent clinical information, including history, physical exam and plan: Yes Notes (Text): I have seen and examined the patient at bedside. Agree with the note dictated above with the following additions/ exceptions: Briefly this is 26 year old male with history of HTN, dilated cardiomyopathy, Obesity who was admitted for evaluation of worsening SOB, cough and abdominal distension and found to have dilated CM with EF of 15-20%. He has been initiated on HF therapy and clinical condition has improved.Life vest was provided. INR still subtherapeutic. Coumadin increased to 12.5 mg today. Patient decided to leave AMA. He understands the risk of leaving AMA. Dr Cliff Cid
== END 2016-10-08 14:55 | disposition home or self-care (01) | DRG 124 ==
LOC: ED 14:49 → ERH 19:47 → 2RNO 22:00 → OBSVTOIN 10-04 11:13 → 2RSO 10-05 11:58
PROVIDERS: ADMIT Internal Medicine; ATTEND Hospitalist
PROC: 4A023N7 Measurement of Cardiac Sampling and Pressure, Left Heart, Percutaneous Approach (ICD-10-PCS; principal; 2016-10-05)
PROC: B2111ZZ Fluoroscopy of Multiple Coronary Arteries using Low Osmolar Contrast (ICD-10-PCS; 2016-10-05)
PROC: B2151ZZ Fluoroscopy of Left Heart using Low Osmolar Contrast (ICD-10-PCS; 2016-10-05)
PROC: B3101ZZ Fluoroscopy of Thoracic Aorta using Low Osmolar Contrast (ICD-10-PCS; 2016-10-05)
DX: I42.0 Dilated cardiomyopathy (principal); I16.0 Hypertensive urgency; R10.13 Epigastric pain; I27.2 Other secondary pulmonary hypertension; I10 Essential (primary) hypertension; G47.33 Obstructive sleep apnea (adult) (pediatric); I34.0 Nonrheumatic mitral (valve) insufficiency; E66.9 Obesity, unspecified; Z68.34 Body mass index [BMI] 34.0-34.9, adult